=== PATIENT | female | born 1990 | race Caucasian/White ===

== ENCOUNTER 2021-09-29 09:11 | Outpatient (REF) | payer OTHER, SELFPAY ==
[2021-09-29 10:46] LABS: Hematocrit 44.3 % (37.0-47.0); Hemoglobin 14.9 g/dl (12.0-16.0); Mean Corpuscular HGB Conc 33.6 g/dl (31.0-35.0); Mean Corpuscular Hemoglobin 29.3 pg (27.0-33.0); Mean Corpuscular Volume 87.2 fL (80.0-98.0); Mean Platelet Volume 9.4 fL (9.4-12.3); Platelet Count 243 X10*3/uL (160-400); Red Blood Count 5.08 X10*6/uL (4.20-5.50); Red Cell Distribution Width 12.8 % (11.0-16.0); White Blood Count 5.5 X10*3/uL (4.8-10.8)
[2021-09-29 11:00] LABS: Alanine Aminotransferase 19 U/L (0-31); Albumin Level 4.1 g/dL (3.5-5.0); Alkaline Phosphatase 87 U/L (39-117); Anion Gap 11 (12-20); Aspartate Amino Transferase 17 U/L (5-31); Bilirubin Total 0.5 mg/dL (0.0-1.0); Blood Urea Nitrogen 7 mg/dL (9-16); Calcium 9.3 mg/dL (8.4-10.2); Carbon Dioxide 21 mmol/L (22-29); Chloride 110 mmol/L (96-108); Cholesterol 213 mg/dL; Estimated Glomerular Filt Rate > 60; Glucose Fasting 99 mg/dL (60-99); HDL Cholesterol 29 mg/dL; LDL Cholesterol Calculated 145 mg/dl; Potassium 3.9 mmol/L (3.3-5.1); Sodium 138 mmol/L (135-145); Total Protein 7.2 g/dL (6.5-8.0); Triglycerides 195 mg/dL
[2021-09-29 11:25] LABS: TSH reflex Free T4 1.27 uIU/mL (0.32-4.0)
== END 2021-09-29 09:12 | disposition home or self-care (01) ==
LOC: HO.WFDLDS 09:11
PROVIDERS: Visit Provider Hospitalist
DX: Z00.00 Encounter for general adult medical examination without abnormal findings (principal)
CPT/HCPCS: 36415; 80053; 80061; 84443; 85027

== ENCOUNTER 2022-01-15 11:13 | Outpatient (REF) | payer OTHER, SELFPAY | END 2022-01-15 11:14 | disposition home or self-care (01) | LOC: HO.LNP 11:13 | PROVIDERS: Visit Provider Hospitalist | DX: N39.0 Urinary tract infection, site not specified (principal) | CPT/HCPCS: 87086; 87147 ==

== ENCOUNTER 2023-05-07 10:37 | Outpatient (AMB) | payer OTHER, SELFPAY ==
--- NOTE | 2023-05-07 10:38 | A.OFFPC_ITS ---
Vital Signs 05/07/23 10:41 05/07/23 11:25 Height 5 ft 4 in Weight 204 lb BMI 35.0 BP 104/58 L Blood Pressure Location Rt brachial Position Sitting Respiration 13 Pulse 121 H 116 H Pulse Source Pulse Oximeter Auscultation Pulse Oximetry (%) 98 Oxygen Delivery Method Room Air Intake Visit Reasons: pe Intake Note: Patient is here for a transfer of care from Laura Lamar DNP to Kellie Simms DNP. Patient's last physical was on 09/29/21 with SV. Patient reports she has a worsening stye on her right eye. Patient reports she had blood from her anus without a bowel movement. Patient reports she has an IUD and she has had it for 9 years. Patient would like to request a referral for OBGYN. Patient would like to request a referral to an station repairer. Head Shipper Required: No Accompanied by: Self / Same As Patient Allergies clonidine Allergy (Severe, Verified 05/07/23 11:06) drops to the floor citalopram [From CELEXA] Adverse Reaction (Mild, Verified 05/07/23 11:06) didn't work diphenhydramine [From Benadryl] Adverse Reaction (Unknown, Verified 05/07/23 11:06) anxious Medication List - Last Reconciled 05/07/23 by Kellie Simms CNP bupropion HCl 300 mg PO DAILY cholecalciferol (vitamin D3) 1,250 mcg PO QWEEK clonazepam 1 mg PO TID PRN cyclobenzaprine TAKE 1 TABLET BY MOUTH THREE TIMES DAILY dextroamphetamine-amphetamine 20 mg 1 tab PO BID gabapentin 800 mg PO TID hydroxyzine HCl 25 mg PO TID PRN loxapine succinate mg PO multivitamin with folic acid 400 mcg (Tab-A-Veronica) 1 tab PO DAILY topiramate 100 mg PO DAILY trazodone 100 mg PO BEDTIME Tobacco use date assessed: 05/07/23 Dental Screening Dental Screen Date: 05/07/23 Did you have a dental visit in the last 12 months?: Yes Did you have a dental problem in the last 6 months where you did not have access to dental care?: No Was dental information given to patient?: Yes HPI HPI Comments History of Present Illness Details 32-year-old female presents for transfer of care For PCP is SV is no longer with the practice. Her last office visit was in 01/15/2022. Her recent blood work was almost 19 months ago. She has past medical history significant anxiety, depression, ADHD, PTSD migraines, and morbid obesity She notes that she is followed by [facility] and sees a psychiatrist at least every 3 months and sooner as need and a therapist weekly She admits to taking her medications as prescribed. She reports controlled symptoms with psychotropic medications She reports a painless stye on her right lower eyelid for the past 4 months, significantly reduced with warm compresses. She reports occasional yellow discharge from the right eye. She denies pain or visual disturbances. She notes that she usually get annual eye exam but has not followed up in the past 2 years. She wears prescription glasses for astigmatism. She notes that she will follow up [facility] in [place]. She notes that she has had an IUD for the past 9 years. She states that had a menstrual period for 1 week 5 weeks ago and noticed spotting 3-4 weeks ago. She states that the last time she was evaluated by an ALCOHOL STILL OPERATOR was a year ago for a regular check up. She states that her last pap smear test was 2 years ago: normal. She requests a referral to wage analyst. She notes that she has been exercising by walking for 10-20 minutes daily. She offers no other complaints and denies acute symptoms. [facility] Surgical History History of wisdom tooth extraction Family History Father Cerebral hemorrhage Mother Hypothyroidism Maternal Grandmother No problems noted. Maternal Grandfather Prostate cancer Maternal Grandfather No problems noted. Maternal Aunt Breast cancer Maternal Uncle Skin cancer Family/Other FH: mental illness Son In good health Sister In good health Social History Household Members: None Household Members Other:: Cat Housing: Apartment Alcohol intake: never Patient Tobacco Use Status: Current everyday Tobacco user Tobacco use type: Cigarette Cigarette Packs Per Day: 0.50 Cigarettes Per Day: 10 Years Smoked: 20 e-Cigarette/Vaping Use: Currently Using Second Hand Smoke Exposure: No Substance Use Type: Marijuana service: No Current occupational status: unemployed Current occupational exposures/hazards: No Sexual orientation: Unable to collect Gender identity: Unable to collect Cognitive needs: No Hearing needs: No Vision needs: Yes Questionnaire PHQ-9 Over the last 2 weeks, how often have you been bothered by any of the following problems? 1. Little interest or pleasure in doing things: nearly every day 2. Feeling down, depressed, or hopeless: more than half the days 3. Trouble falling or staying asleep, or sleeping too much: nearly every day 4. Feeling tired or having little energy: nearly every day 5. Poor appetite or overeating: not at all 6. Feeling bad about yourself - or that you are a failure or have let yourself or your family down: not at all 7. Trouble concentrating on things, such as reading the newspaper or watching television: several days 8. Moving or speaking so slowly that other people could have noticed. Or the opposite - being so fidgety or restless that you have been moving around a lot more than usual: not at all 9. Thoughts that you would be better off or of hurting yourself in some way: not at all Total score: 12 Depression Screening Interpretation: Positive Depression Screening Done: Yes 18147 - PHQ-9 Billing: Yes Source: Developed by Drs. Neal Hernández, Esperanza Saldana, Vance Saul and colleagues, with an educational kevan from [employer] Thrive Questionnaire Date Thrive assessed: 05/07/23 I am a: Patient What is your living situation today?: I have a steady place to live Within the past 12 months, did the food you bought not last and you didn't have the money to get more?: Never true Within the past 12 months, did you worry whether your food would run out before you got money to buy more?: Never true Do you have trouble paying for medicines?: No Do you have trouble getting transportation to medical appointments?: No Do you have trouble paying your heating and electricity bill?: No Do you have trouble taking care of your child, family member or friend?: No Do you have trouble with day-to-day activities such as bathing, preparing meals, shopping, managing finances, etc.?: No Are you currently unemployed and looking for a job?: No Are you interested in more education?: No Please select the resources that you would like help with: None Currently or been in a relationship where the following occur: no concerns reported AUDIT C Alcohol Use Questionnaire (AUDIT-C) 1. How often do you have a drink containing alcohol?: Never 3. How often do you have six or more drinks on one occasion?: Never Total Score: 0 COCO-7 AMB Questionnaire COCO-7 Date COCO - 7 assessed: 05/07/23 Feeling nervous, anxious, or on edge: 3 = Nearly every day Not being able to stop or control worryin = Nearly every day Worrying too much about different things: 3 = Nearly every day Trouble relaxin = Nearly every day Being so restless that it is hard to sit still: 2 = More than half the days Becoming easily annoyed or irritable: 1 = Several days Feeling afraid as if something awful might happen: 2 = More than half the days Total COCO-7 score (0-4 normal; 5-9 mild; 10-14 moderate; 15-21 severe): 17 Source: Developed by Drs. Neal Hernández, Esperanza Saldana, Vance Saul and colleagues, with an educational kevan from [employer] COCO-7 Assessment Billing COCO-7 Assessment Tool: COCO-7 Assessment 93652 Review of Systems Const Details: Const Denies chills, Denies fatigue, Denies fever(s), Denies headache(s) and Denies weakness ENT Reports as per HPI Card Denies chest pain, Denies lightheadedness, Denies dyspnea and Denies other (Palpitations) Resp Denies cough, Denies dyspnea, Denies wheezing and Denies other ( shortness of breath) GI Denies abdominal pain, Denies melena, Denies hematochezia, Denies change in bowel habits, Denies dyspepsia and Denies nausea Denies hematuria and Denies dysuria Musc Denies abnormal gait, Denies myalgias, Denies arthralgias, Denies numbness and Denies tingling Skin/Breast Reports as per HPI Neuro Denies abnormal gait, Denies dizziness, Denies headache(s), Denies memory loss, Denies numbness, Denies Sensory deficit (Neuro), Denies tingling and Denies weakness Psych Denies anxiety, Denies depression, Denies memory loss Endo Denies cold intolerance, Denies fatigue, Denies heat intolerance, Denies polydipsia and Denies polyuria Aller/Immun Denies wheezing Physical exam (Primary Care) Vital Signs: Last Vital Signs Pulse 121 H 05/07/23 10:41 Resp 13 05/07/23 10:41 BP 104/58 L 05/07/23 10:41 Pulse Ox 98 05/07/23 10:41 Oxygen Delivery Method Room Air 05/07/23 10:41 BMI result Body Mass Index 35.0 Tobacco/Smoking Status: Tobacco use Status Patient Tobacco Use Status Never used Tobacco 05/07/23 10:39 Depression Screening Interpretation: Positive Currently or been in a relationship where the following occur: no concerns reported Const Other: General: no acute distress and well developed Nutritional Appearance: well nourished Orientation/consciousness: patient oriented x3 HENMT Head: Yes normocephalic and Yes atraumatic Eyes General: appearance normal, both eyes and all related structures Pupils: Equal, round and reactive pupils present EOM: EOMs intact bilaterally Resp Effort & Inspection: normal respiratory effort Auscultation: clear to auscultation bilaterally Cardio Rate: regular rate Rhythm: regular rhythm Heart sounds: S1 normal heart sound present, S2 normal heart sound present, no gallops, no murmurs and no rubs GI Palpation (GI): No Abdominal aortic bruit present, Soft to palpation, nontender, No hepatosplenomegaly present and No Rebound tenderness present Auscultation: normal bowel sounds General: Yes no CVA tenderness Back/Spine/Pelvis Back: no CVA tenderness Cervical Spine: cervical ROM normal and No Cervical spine tenderness Thoracic/Lumbar Spine: thoraco-lumbar ROM normal, No pain with thoraco-lumbar ROM, No thoracic spinal tenderness and No lumbar spinal tenderness Extrem General: Yes normal to inspection, No edema and No calf tenderness Skin General: warm and dry. Normal skin color. Normal skin turgor Lesions: Small, round, lump noted to the right lower eyelid, consistent with stye. No discharge or signs of infection Rashes: no rashes Trauma: no lacerations or abrasions Wounds: no wounds Nails: normal Neuro General: patient oriented x3, gait normal and no focal neuro deficit Cranial nerves: Yes Equal, round and reactive pupils present Cognition (Neuro): normal cognition Gait exam (Neuro): Normal gait present Sensory Exam: No Sensory deficit (Neuro) Psych Appearance: grossly normal Affect: normal affect Attitude: cooperative Thought process: Normal thought process present Assessment and Plan Assessment & Plan (1) Anxiety and depression: Code(s): F41.9 - Anxiety disorder, unspecified; F32.9 - Major depressive disorder, single episode, unspecified Plan: PHQ-9 and COCO-7 scores revealed moderate depression and severe anxiety respectively Heart rate is elevated, likely due to anxiety. Resting heart rate is 116 Continue with current treatment regimen Routine exercise encouraged Continue follow-up with therapist and psychiatrist as planned Return with worsening or new symptoms Verbalized understanding and agreed with treatment plan. (2) ADHD, adult residual type: Code(s): F90.8 - Attention-deficit hyperactivity disorder, other type Plan: As above (3) PTSD (post-traumatic stress disorder): Code(s): F43.10 - Post-traumatic stress disorder, unspecified Plan: As above (4) Hordeolum externum right lower eyelid: Code(s): H00.012 - Hordeolum externum right lower eyelid Plan: Reports a painless stye on her right lower eyelid for the past 4 months, significantly reduced with warm compresses. She reports occasional yellow discharge from the right eye. She denies pain or visual disturbances Small, round, lump noted to the right lower eyelid, consistent with stye. No discharge or signs of infection Continue with warm compresses Follow-up with Ophthalmology as planned Return with worsening or new signs and symptoms Verbalized understanding and agreed with treatment plan (5) IUD check up: Code(s): Z30.431 - Encounter for routine checking of intrauterine contraceptive device Plan: She notes that she has had an IUD for the past 9 years. She states that had a menstrual period for 1 week 5 weeks ago and noticed spotting 3-4 weeks ago. She states that the last time she was evaluated by an ALCOHOL STILL OPERATOR was a year ago for a regular check up. She states that her last pap smear test was 2 years ago; normal. She requests a referral to wage analyst. Referred to [facility] ALCOHOL STILL OPERATOR Return with symptoms or concerns Verbalized understanding and agreed with treatment plan. Orders: Orders Comprehensive [place]. Panel Fast Today Z00.00 - Encounter for general adult medical examination without abnormal findings Lipid Panel Today Z00.00 - Encounter for general adult medical examination wit hout abnormal findings TSH reflex Free T4 Today Z00.00 - Encounter for general adult medical examination without abnormal findings UA CC w/rflx Micro + Cult Today Z00.00 - Encounter for general adult medical examination without abnormal findings Complete Blood Count Auto Diff Today Z00.00 - Encounter for general adult medical examination without abnormal findings Referrals ALCOHOL STILL OPERATOR Referral Z30.431 - Encounter for routine checking of intrauterine contraceptive device Coding Level of Care Code Est Pt Level 4 (13148) Diagnoses Anxiety and depression F41.9; F32.9 ADHD, adult residual type F90.8 PTSD (post-traumatic stress disorder) F43.10 Hordeolum externum right lower eyelid H00.012 IUD check up Z30.431 Additional Codes COCO-7 Assessment Billing - COCO-7 Assessment Tool: COCO-7 Assessment [id number] ([id number])
[2023-05-07 10:41] VITALS: BP 104/58; PULSE 121; RESP 13; O2SAT 98; BMI 35.0
[2023-05-07 11:25] VITALS: PULSE 116
== END 2023-05-07 11:47 | disposition home or self-care (01) ==
PROVIDERS: PCP Hospitalist; Visit Provider Nurse Practitioner Family
DX: H00.012 Hordeolum externum right lower eyelid (principal); F41.9 Anxiety disorder, unspecified; E66.01 Morbid (severe) obesity due to excess calories; Z68.35 Body mass index [BMI] 35.0-35.9, adult; F32.9 Major depressive disorder, single episode, unspecified; F90.8 Attention-deficit hyperactivity disorder, other type; F43.10 Post-traumatic stress disorder, unspecified; Z30.431 Encounter for routine checking of intrauterine contraceptive device
CPT/HCPCS: 96127; 99214

== ENCOUNTER 2024-01-27 14:22 | Outpatient (REF) | payer OTHER, SELFPAY ==
[2024-02-01 04:09] LABS: CT PCR NOT DETECTED (Not Detect.); NG PCR NOT DETECTED (Not Detect.)
[2024-02-01 09:05] LABS: Bacterial Vaginosis PCR NEGATIVE (Negative); Candida Group PCR NOT DETECTED (Not Detect); Candida glab krusei PCR DETECTED (Not Detect); Trichomonas vaginalis PCR NOT DETECTED (Not Detect)
[2024-02-02 13:08] LABS: HPV mRNA E6/E7 Not Detected (Not Detected)
== END 2024-01-27 14:23 | disposition home or self-care (01) ==
LOC: HO.LAB 14:22
PROVIDERS: PCP Nurse Practitioner Family; Visit Provider Advanced Practice Midwife
DX: Z01.419 Encounter for gynecological examination (general) (routine) without abnormal findings (principal); N89.8 Other specified noninflammatory disorders of vagina; E66.9 Obesity, unspecified; F17.210 Nicotine dependence, cigarettes, uncomplicated; Z20.2 Contact with and (suspected) exposure to infections with a predominantly sexual mode of transmission
CPT/HCPCS: 0352U; 36415; 87491; 87591; 87624; 88175; 99385

== ENCOUNTER 2024-01-27 14:22 | Outpatient (AMB) | payer OTHER, SELFPAY ==
--- NOTE | 2024-01-27 14:37 | A.OFFVIS_ITS ---
Vital Signs 01/27/24 14:40 Height 5 ft 4 in Weight 204 lb BMI 35.0 BP 120/70 Intake Visit Reasons: annual Slip Cover Operator Required: No Information Interpreted: clinical only Squad Sergeant: Squad Sergeant Present Allergies clonidine Allergy (Severe, Verified 01/27/24 14:40) drops to the floor citalopram [From CELEXA] Adverse Reaction (Mild, Verified 01/27/24 14:40) didn't work diphenhydramine [From Benadryl] Adverse Reaction (Unknown, Verified 01/27/24 14:40) anxious Medication List - Last Reconciled 01/27/24 by Rajni Busch CNM bupropion HCl XL 300 mg PO DAILY cholecalciferol (vitamin D3) 1,250 mcg PO QWEEK clonazepam 1 mg PO TID PRN cyclobenzaprine TAKE 1 TABLET BY MOUTH THREE TIMES DAILY dextroamphetamine-amphetamine 20 mg 1 tab PO BID gabapentin 800 mg PO TID hydroxyzine HCl 25 mg PO TID PRN levonorgestrel (Mirena) intrauterine loxapine succinate mg PO multivitamin with folic acid 400 mcg (Tab-A-Veronica) 1 tab PO DAILY topiramate 100 mg PO DAILY trazodone 100 mg PO BEDTIME Is last menstrual period known: No (IUD) HPI HPI annual: Details: Patient is here for continuous improvement coordinator exam she was seen by this practice previous years and before that she used to go to [place] she delivered her son there. She had a Mirena place there some months after giving she said she bled a lot with it for the 1st few months and then her periods eventually went away. Her periods have started to return. She says they told her it could be used for 10 years. She just recently broke up with her boyfriend of a few years but she wanted a test just to be sure she has been getting light periods she says sometimes they are a little bit heavy but they are still not enough to wear pad but she can tell they are a period Because she gets PMS symptoms before. [facility] Medical History (Updated 01/27/24 @ 15:33 by Rajni Busch CNM) Vitamin A deficiency ADHD (attention deficit hyperactivity disorder) Anxiety Migraines Surgical History History of wisdom tooth extraction Family History Father Cerebral hemorrhage Mother Hypothyroidism Maternal Grandmother No problems noted. Maternal Grandfather Prostate cancer Maternal Grandfather No problems noted. Maternal Aunt Breast cancer Maternal Uncle Skin cancer Family/Other FH: mental illness Son In good health Sister In good health Social History Household Members: None Household Members Other:: Cat Housing: Apartment Alcohol intake: never Patient Tobacco Use Status: Current everyday Tobacco user Tobacco use type: Cigarette Cigarette Packs Per Day: 0.50 Cigarettes Per Day: 10 Years Smoked: 20 e-Cigarette/Vaping Use: Currently Using Second Hand Smoke Exposure: No Substance Use Type: Marijuana service: No Current occupational status: unemployed Current occupational exposures/hazards: No Sexual orientation: Unable to collect Gender identity: Unable to collect Cognitive needs: No Hearing needs: No Vision needs: Yes Female Reproductive History Menstrual Age of Menarche: 9 Duration of menses: 3-5 days control method: progestin IUCD Total pregnancies: 2 Full term: 1 History of abnormal pap smear: No (previous pap neg ,unsure date) Physical Exam Vital Signs: Last Vital Signs BP 120/70 01/27/24 14:40 BMI result Body Mass Index 35.0 Const General: healthy appearing, comfortable, no acute distress, well developed and alert Nutritional Appearance: average body habitus Orientation/consciousness: patient oriented x3 Limitations: no limitations HEENT Head: Yes normocephalic Neck Neck: Yes normal visual inspection Chest Chest palpation & inspection: normal inspection of the chest Breast/axilla inspection: normal inspection of the breasts and normal inspection of the axillae Breast/axilla palpation: normal palpation of the breasts and normal palpation of the axillae Resp Effort & Inspection: normal respiratory effort GI Inspection: Yes normal to inspection, No Abdominal wall edema and No distended Palpation (GI): Soft to palpation and nontender Other: External exam within normal limits patient is very fair complected vulva very pink no obvious signs of yeast however. Vagina pink and moist cervix multiparous pink moist with Mirena strings extending about 2-3 cm. Cervical mucus very clear and abundant consistent with ovulatory mucus uterus is small anteverted mobile nontender adnexa nontender fair tone with Kegel instructed on kegels. General: Yes bladder normal to palpation External Female Exam: normal external appearance and normal appearance of the urethra Speculum Exam - Vagina: normal appearance of the vagina, normal palpation and normal vaginal discharge Speculum Exam - Cervix: normal appearance of the cervix, normal palpation and nontender Bimanual exam- vagina & uterus: normal bimanual exam, normal palpation, uterine size normal, bladder normal to palpation, consistency normal, normal palpation, uterine mobility normal, uterine shape normal, No Cervical tenderness present, non-tender and no cervical motion tenderness Bimanual Exam- Adnexa, other: normal adnexae, no masses, normal and No adnexal tenderness Neuro General: patient oriented x3 Assessment & Plan Assessment & Plan (1) IUD check up: Code(s): Z30.431 - Encounter for routine checking of intrauterine contraceptive device Category: Medical (2) Smoker: Code(s): F17.200 - Nicotine dependence, unspecified, uncomplicated Category: Social Hx (3) Women's annual routine gynecological examination: Code(s): Z01.419 - Encounter for gynecological examination (general) (routine) without abnormal findings Category: Medical (4) Encounter for screening examination for sexually transmitted disease: Code(s): Z11.3 - Encounter for screening for infections with a predominantly sexual mode of transmission Category: Medical (5) Cervical cancer screening: Code(s): Z12.4 - Encounter for screening for malignant neoplasm of cervix Category: Medical (6) Obesity (BMI 35.0-39.9 without comorbidity): Code(s): E66.9 - Obesity, unspecified Category: Medical Plan -----Discussed in this visit the following: healthy balanced diet, regular and consistent exercise, getting recommended health screens, doing the best she can for her particular health concerns, kegel exercises, pap smear screening and followup recommendations, mammography screening and SBE, normal changes in cycles in her life stage--- . Reviewed self-care reviewed the Mirena and its side effects and length of time can be used and that it used to be used for 5 years and is now extended up 8 but at this point for sure it should be replaced. I recommend she has no unprotected intercourse until we can replace it. The best time to do it would be at the start of a period however light it is that she experiences them. She is currently not with anyone so this is good time if we can not get it in with the next menses we will aim for the 1 after that I recommend that she pay attention to when she is premenstrual and start being aware and the minute she gets what she would call Call for replacement. She is not interested in blood work for STIs. She needs a new primary care provider and she will ask at the medical front desk specialist. Orders: Orders CT NG by PCR Today Z20.2 - Contact with and (suspected) exposure to infections with a predominantly sexual mode of transmission Bacterial Vaginosis Panel Today N89.8 - Other specified noninflammatory disorders of vagina PAP + HPV E6/E7 rfx 18/45 Today Z01.419 - Encounter for gynecological examination (general) (routine) without abnormal findings Coding Level of Care Code New Pt Prev Care [id number]([id number] Diagnoses IUD check up Z30.431 Smoker F17.200 Women's annual routine gynecological examination Z01.419 Encounter for screening examination for sexually transmitted disease Z11.3 Cervical cancer screening Z12.4 Obesity (BMI 35.0-39.9 without comorbidity) E66.9
[2024-01-27 14:40] VITALS: BP 120/70; BMI 35.0
== END 2024-01-27 15:32 | disposition home or self-care (01) ==
LOC: HO.HWSM 14:22
PROVIDERS: PCP Nurse Practitioner Family; Visit Provider Advanced Practice Midwife
DX: Z01.419 Encounter for gynecological examination (general) (routine) without abnormal findings (principal); E66.9 Obesity, unspecified; Z68.35 Body mass index [BMI] 35.0-35.9, adult; F17.200 Nicotine dependence, unspecified, uncomplicated
CPT/HCPCS: 99385

== ENCOUNTER 2024-04-06 10:59 | Outpatient (AMB) | payer OTHER, SELFPAY ==
--- NOTE | 2024-04-06 11:01 | MHC.PC.OV ---
Vital Signs 04/06/24 11:13 Height 5 ft 4 in Weight 195 lb 8 oz BMI 33.6 BP 110/80 Blood Pressure Location Rt brachial Position Sitting Respiration 16 Pulse 94 Pulse Source Pulse Oximeter Temp 98.1 F Temp Source Oral Pulse Oximetry (%) 97 Oxygen Delivery Method Room Air Intake Visit Reasons: EstablishCareNP Intake Note: patient here for CPE [employer] Shift Lead Required: No Is last menstrual period known: No (IUD) Post menopausal: No Patient : No Allergies clonidine Allergy (Severe, Verified 04/06/24 11:16) drops to the floor citalopram [From CELEXA] Adverse Reaction (Mild, Verified 04/06/24 11:16) didn't work diphenhydramine [From Benadryl] Adverse Reaction (Unknown, Verified 04/06/24 11:16) anxious Medication List - Last Reviewed 04/06/24 by Gabby Krishnamurthy MA aripiprazole 5 mg PO DAILY bupropion HCl XL 300 mg PO DAILY cholecalciferol (vitamin D3) 1,250 mcg PO QWEEK clonazepam 1 mg PO TID PRN cyclobenzaprine TAKE 1 TABLET BY MOUTH THREE TIMES DAILY dextroamphetamine-amphetamine 20 mg 1 tab PO BID gabapentin 800 mg PO TID levonorgestrel (Mirena) intrauterine multivitamin with folic acid 400 mcg (Tab-A-Veronica) 1 tab PO DAILY topiramate 100 mg PO DAILY trazodone 100 mg PO BEDTIME Tobacco use date assessed: 04/06/24 Dental Screening Dental Screen Date: 04/06/24 Did you have a dental visit in the last 12 months?: Yes Did you have a dental problem in the last 6 months where you did not have access to dental care?: No Was dental information given to patient?: Patient has dentist HPI HPI Comments History of Present Illness Details 33-year-old female presents for an extended physical exam She has past medical history significant anxiety, depression, ADHD, PTSD migraines, and morbid obesity She notes that she is followed by [facility] and sees a psychiatrist at least every 2-3 months and sooner as need and a therapist biweekly She admits to taking her medications as prescribed. She reports controlled symptoms with psychotropic medication. She reports controlled anxiety and depressive symptoms He admits to making healthy lifestyle changes, including diet and exercise. She generally sleeps well She reports persistent cough with yellow-greenish mucus for the past 2 months. She notes associated difficulty with inhalation and soreness to her bilateral lower ribcage especially at night. Her symptoms intensify at night. She has been taking rpxk-krk-[id number] cough remedies with improvement. She notes history of cough during the cold months. She notes that her son had respiratory symptoms before onset of her symptoms. No constitution symptoms at this time Smokes 10 cigarettes daily and has been smoking for the past 20 years; she cut back from 1ppd to 0.5ppd. Vapes nicotine 1-2 times weekly. Does not drink alcohol. Smokes half a joint of cannabis nightly Last eye exam was in 08/03/2023 (unknown facility/provider). 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 Maternal Aunt Breast cancer Alcohol abuse Maternal Uncle Skin cancer Family/Other FH: mental illness Son In good health Sister In good health Alcohol abuse Substance abuse Social History Household Members: None Household Members Other:: Cat Housing: Apartment Alcohol intake: never Patient Tobacco Use Status: Current everyday Tobacco user Tobacco use type: Cigarette Cigarette Packs Per Day: 0.50 Cigarettes Per Day: 10 Years Smoked: 20 e-Cigarette/Vaping Use: Currently Using Second Hand Smoke Exposure: No Substance Use Type: Marijuana service: No Current occupational status: unemployed Current occupational exposures/hazards: No Sexual orientation: Unable to collect Gender identity: Unable to collect Cognitive needs: No Hearing needs: No Vision needs: Yes Female Reproductive History Menstrual Age of Menarche: 9 Questionnaire PHQ-9 Over the last 2 weeks, how often have you been bothered by any of the following problems? 1. Little interest or pleasure in doing things: several days 2. Feeling down, depressed, or hopeless: more than half the days 3. Trouble falling or staying asleep, or sleeping too much: several days 4. Feeling tired or having little energy: nearly every day 5. Poor appetite or overeating: not at all 6. Feeling bad about yourself - or that you are a failure or have let yourself or your family down: several days 7. Trouble concentrating on things, such as reading the newspaper or watching television: nearly every day 8. Moving or speaking so slowly that other people could have noticed. Or the opposite - being so fidgety or restless that you have been moving around a lot more than usual: not at all 9. Thoughts that you would be better off or of hurting yourself in some way: not at all Total score: 11 Depression Screening Interpretation: Positive Depression Screening Follow-up: Existing condition and In treatment Depression Screening Done: Yes 27522 - PHQ-9 Billing: Yes Source: Developed by Drs. Neal Hernández, Esperanza Saldana, Vance Saul and colleagues, with an educational kevan from [employer]. Thrive Questionnaire Date Thrive assessed: 04/06/24 I am a: Patient What is your living situation today?: I have a steady place to live Within the past 12 months, did the food you bought not last and you didn't have the money to get more?: Never true Within the past 12 months, did you worry whether your food would run out before you got money to buy more?: Never true Do you have trouble paying for medicines?: No Do you have trouble getting transportation to medical appointments?: No Do you have trouble paying your heating and electricity bill?: No Do you have trouble taking care of your child, family member or friend?: No Do you have trouble with day-to-day activities such as bathing, preparing meals, shopping, managing finances, etc.?: Yes Are you currently unemployed and looking for a job?: Yes Are you interested in more education?: Yes Please select the resources that you would like help with: Housing/Usp, Transportation, Daily support, Job search/training and Education Currently or been in a relationship where the following occur: No concerns reported THRIVE Score: 0 AUDIT C Alcohol Use Questionnaire (AUDIT-C) 1. How often do you have a drink containing alcohol?: Never Total Score: 0 Score Reviewed/Action Taken: Yes COCO-7 AMB Questionnaire COCO-7 Date COCO - 7 assessed: 04/06/24 Feeling nervous, anxious, or on edge: 3 = Nearly every day Not being able to stop or control worryin = More than half the days Worrying too much about different things: 3 = Nearly every day Trouble relaxin = Several days Being so restless that it is hard to sit still: 1 = Several days Becoming easily annoyed or irritable: 2 = More than half the days Feeling afraid as if something awful might happen: 1 = Several days Total COCO-7 score (0-4 normal; 5-9 mild; 10-14 moderate; 15-21 severe): 13 Source: Developed by Drs. Neal Hernández, Esperanza Saldana, Vance Saul and colleagues, with an educational kevan from [employer]. COCO-7 Assessment Billing COCO-7 Assessment Tool: COCO-7 Assessment 93751 Review of Systems Const Details: Denies chills, Denies fatigue, Denies fever(s), Denies headache(s) and Denies weakness HEENT Denies change in vision, Denies dizziness, Denies headache(s), Denies hearing loss, Denies nasal congestion, Denies sinus pain, Denies sinus pressure and Denies sore throat Card Denies chest pain, Denies lightheadedness, Denies dyspnea and Denies other (palpitations) Resp Reports cough, Denies dyspnea and Denies wheezing GI Denies abdominal pain, Denies melena, Denies hematochezia, Denies change in bowel habits, Denies dyspepsia and Denies nausea Denies hematuria and Denies dysuria Musc Denies abnormal gait, Denies myalgias, Denies arthralgias, Denies numbness and Denies tingling Skin/Breast Denies rash, Denies unusual bruising and Denies wounds Neuro Denies abnormal gait, Denies dizziness, Denies headache(s), Denies memory loss, Denies numbness, Denies Sensory deficit (Neuro), Denies tingling and Denies weakness Psych Denies anxiety, Denies depression and Denies memory loss Endo Denies cold intolerance, Denies fatigue, Denies heat intolerance, Denies polydipsia and Denies polyuria Venkatesh/Lymph Denies easy bleeding and Denies easy bruising Aller/Immun Denies wheezing Physical exam (Primary Care) Vital Signs: Last Vital Signs Temp 98.1 F 04/06/24 11:13 Pulse 94 04/06/24 11:13 Resp 16 04/06/24 11:13 BP 110/80 04/06/24 11:13 Pulse Ox 97 04/06/24 11:13 Oxygen Delivery Method Room Air 04/06/24 11:13 BMI result Body Mass Index 33.6 Tobacco/Smoking Status: Tobacco use Status Tobacco use date assessed 04/06/24 04/06/24 11:10 Patient Tobacco Use Status Current everyday Tobacco 04/06/24 11:02 Tobacco use type Cigarette 04/06/24 11:02 e-Cigarette/Vaping Use Currently Using 04/06/24 11:02 PHQ-9: PHQ-9 Score PHQ-9: Total score 11 04/06/24 11:18 Depression Screening Interpretation: Positive Depression Screening Follow-up: Existing condition and In treatment Thrive Assessment: Date of Thrive Assessment Date Thrive assessed 04/06/24 04/06/24 11:19 Currently or been in a relationship where the following occur: No concerns reported Const Other: General: no acute distress, well developed, alert and awake Nutritional Appearance: well nourished Orientation/consciousness: patient oriented x3 HENMT Head: Yes normocephalic and Yes atraumatic Ears: hearing grossly normal bilaterally and TM's normal bilaterally General nose exam: Normal external nose present and Normal nares present Mouth: Normal oral and palatal mucosa present and moist mucous membranes Teeth and gingiva: dentition normal Throat: Yes oropharynx normal Eyes Pupils: Equal, round and reactive pupils present and Pupil accommodation reflex normal EOM: EOMs intact bilaterally Neck Neck: Yes normal visual inspection, Yes no lymphadenopathy and Yes trachea midline Thyroid: Thyroid normal Carotids: no bruits Lymphatic: no lymphadenopathy noted Chest Chest palpation & inspection: normal inspection of the chest Resp Effort & Inspection: normal respiratory effort Auscultation: Diminished with rhonchi and scattered wheezing to auscultation bilaterally; worse to bilateral upper lobes Cardio Rate: regular rate Rhythm: regular rhythm Heart sounds: S1 normal heart sound present, S2 normal heart sound present, no gallops, no murmurs and no rubs Bruits: no abdominal aortic bruits and no carotid bruits GI Palpation (GI): No Abdominal aortic bruit present, Soft to palpation, nontender, No hepatosplenomegaly present and No Rebound tenderness present Auscultation: normal bowel sounds General: Yes no CVA tenderness Back/Spine/Pelvis Back: no CVA tenderness Cervical Spine: cervical ROM normal and No Cervical spine tenderness Thoracic/Lumbar Spine: thoraco-lumbar ROM normal, No pain with thoraco-lumbar ROM, No thoracic spinal tenderness and No lumbar spinal tenderness Skin General: warm and dry. Normal skin color. Normal skin turgor Lesions: no lesions Rashes: no rashes Trauma: no lacerations or abrasions Wounds: no wounds Nails: normal Neuro General: patient oriented x3, gait normal and CN's II-XI intact bilaterally Cranial nerves: Yes Equal, round and reactive pupils present Cognition (Neuro): normal cognition Gait exam (Neuro): Normal gait present Motor exam (neuro): 5/5 motor strength present throughout Sensory Exam: No Sensory deficit (Neuro) Deep tendon reflexes (DTR's): Right patellar reflex intensity grade: 2+ and Left patellar reflex intensity grade: 2+ Extrem General: Yes normal to inspection, No edema and No calf tenderness Psych Appearance: grossly normal Affect: normal affect Attitude: cooperative Thought process: Normal thought process present Coding Level of Care Code Est Pt Level 4 (16305) Est Pt Prev Care 18-39y(12910) Diagnoses Normal physical exam Z00.00 Viral upper respiratory illness J06.9 Chronic cough R05.3 Cough type: chronic Smoker F17.200 Flu vaccine need Z23 Anxiety and depression F41.9; F32.9 ADHD, adult residual type F90.8 PTSD (post-traumatic stress disorder) F43.10 Additional Codes COCO-7 Assessment Billing - COCO-7 Assessment Tool: COCO-7 Assessment 82731 ([id number]) Assessment & Plan Assessment & Plan (1) Normal physical exam: Code(s): Z00.00 - Encounter for general adult medical examination without abnormal findings Category: Medical Plan: No significant physical restrictions or limitations noted Continue current treatment regimen Healthy diet and routine exercise encouraged Encouraged to limit or avoid smoking cannabis which may have adverse interaction with her psychotropic medications Advised to get lab work done and follow-up for telehealth visit in 2-3 weeks for labs review Return sooner with symptoms or concerns Verbalized understanding and agreed with the treatment plan (2) Viral upper respiratory illness: Code(s): J06.9 - Acute upper respiratory infection, unspecified Category: Medical Plan: Likely viral illness though possibly allergies. No exam evidence of bacterial infection Viral illness There is no antibiotic medication for viruses.? They must run their course.? Most average 5-7 days but 7-10 days is not uncommon and up to 14 days is still possible.? A cough is often the last symptom to resolve and this can last for weeks in some cases. Rest Hydrate well -? Drink plenty of fluids.? Especially water. Tylenol or ibuprofen for muscle aches, headache, fever/discomfort Cannot rule out COVID-19/RSV/Flu infection Nasal swab acquired and will be sent to the lab Return for new or worsening symptoms Verbalized understanding and agreed with treatment plan (3) Cough: Code(s): R05.9 - Cough, unspecified Category: Medical Qualifiers: Cough type: chronic Qualified Code(s): R05.3 - Chronic cough Plan: Reports persistent cough with yellow-greenish mucus x 2 months. She notes associated difficulty with inhalation and soreness to her bilateral lower ribcage especially at night. Her symptoms intensify at night. She has been taking [id number]-[id number] cough remedies with improvement. She notes history of cough during the cold months. She reports positive sick contact before the onset of her symptoms Intermittent cough noted during exam Diminished with rhonchi and scattered wheezing to auscultation bilaterally; worse to bilateral upper lobes Likely related to cigarette smoking or vaping. Bronchitis or pneumonia is possible Adequate hydration encouraged May take Tylenol ibuprofen for pain or discomfort Albuterol inhaler as prescribed Chest x-ray ordered Smoking and vaping cessation encouraged Follow-up with worsening or new symptoms Verbalized understanding and agreed with the plan (4) Smoker: Code(s): F17.200 - Nicotine dependence, unspecified, uncomplicated Category: Social Hx Plan: She smokes 10 cigarettes daily and has been smoking for the past 20 years; she cut back from 1ppd to 0.5ppd. she vapes nicotine 1-2 times weekly Instructed on the health risks and complications of cigarette smoking and vaping. Smoking and vaping cessation encouraged Declines medication treatment for smoking or nicotine use and notes that she will cut back on smoking and vaping She may inform her PCP as needed for treatment for smoking cessation and nicotine use Verbalized understanding and agreed with the plan (5) Flu vaccine need: Code(s): Z23 - Encounter for immunization Category: Medical Plan: She is not currently vaccinated for the flu but intends to do so Encouraged to get vaccinated after her respiratory symptoms improved/resolved. She may get the vaccine from her PCP office or the local pharmacy Verbalized understanding and agreed with the plan (6) Anxiety and depression: Code(s): F41.9 - Anxiety disorder, unspecified; F32.9 - Major depressive disorder, single episode, unspecified Category: Medical Plan: Reports controlled anxiety and depressive symptoms PHQ-9 and COCO-7 scores revealed moderate depression and anxiety respectively Continue current treatment regimen Routine exercise encouraged Follow-up with psychiatrist and therapist as planned Verbalized understanding and agreed with the plan (7) ADHD, adult residual type: Code(s): F90.8 - Attention-deficit hyperactivity disorder, other type Category: Medical Plan: Plan as above (8) PTSD (post-traumatic stress disorder): Code(s): F43.10 - Post-traumatic stress disorder, unspecified Category: Medical Plan: Plan as above Orders: Orders SARS-CoV2/FLU/RSV Today R09.89 - Other specified symptoms and signs involving the circulatory and respiratory systems XR chest 2V Today R05.9 - Cough, unspecified Medications: New albuterol sulfate 90 mcg/actuation 2 puffs inhalation Q4-6H PRN 8.5 grams 4RF shortness of breath or wheezing
[2024-04-06 11:13] VITALS: BP 110/80; PULSE 94; RESP 16; TEMP 36.7; O2SAT 97; BMI 33.6
== END 2024-04-06 11:54 | disposition home or self-care (01) ==
PROVIDERS: Visit Provider Nurse Practitioner Family
DX: Z00.00 Encounter for general adult medical examination without abnormal findings (principal); J06.9 Acute upper respiratory infection, unspecified; R05.3 Chronic cough; F17.210 Nicotine dependence, cigarettes, uncomplicated; F41.9 Anxiety disorder, unspecified; F32.9 Major depressive disorder, single episode, unspecified; F90.8 Attention-deficit hyperactivity disorder, other type; F43.10 Post-traumatic stress disorder, unspecified

== ENCOUNTER 2024-04-06 10:59 | Outpatient (REF) | payer OTHER, SELFPAY ==
[2024-04-06 14:42] LABS: Influenza A PCR NEGATIVE (Negative); Influenza B PCR NEGATIVE (Negative); Resp Syncy Virus RNA Qual PCR NEGATIVE (Negative); SARS COV2 PCR INHOUSE NEGATIVE (Negative)
== END 2024-04-06 11:00 | disposition home or self-care (01) ==
LOC: HO.LAB 10:59
PROVIDERS: Visit Provider Nurse Practitioner Family
DX: Z00.01 Encounter for general adult medical examination with abnormal findings (principal); J06.9 Acute upper respiratory infection, unspecified; R05.3 Chronic cough; F41.9 Anxiety disorder, unspecified; F32.9 Major depressive disorder, single episode, unspecified; F90.8 Attention-deficit hyperactivity disorder, other type; F43.10 Post-traumatic stress disorder, unspecified; F17.210 Nicotine dependence, cigarettes, uncomplicated; Z23 Encounter for immunization
CPT/HCPCS: 0241U; 96127; 99212; 99395

== ENCOUNTER 2024-04-15 07:46 | Outpatient (REF) | payer OTHER, SELFPAY ==
--- NOTE | ~2024-04-15 | XR_ITS ---
EXAMINATION: XR CHEST CLINICAL INFORMATION: Cough COMPARISON: Chest x-ray on 05/02/2019 TECHNIQUE: 2 views of the chest were obtained. FINDINGS: No significant abnormality is noted involving the heart, lungs, mediastinum, bony thorax or soft tissues. XR/XR chest 2V IMPRESSION: Unremarkable examination. Electronically signed by: Silke Earl MD 04/15/2024 01:25 PM EDT RP
[2024-04-15 08:16] LABS: MANUAL DIFF FLAG NO
[2024-04-15 08:50] LABS: Basophils Percent Auto 0.5 % (0-2); Eosinophils Percent Auto 0.2 % (0-4); Hematocrit 42.9 % (37.0-47.0); Hemoglobin 14.5 g/dl (12.0-16.0); Imm Gran Abs Auto 0.02 X10*3/uL (0.00-0.03); Imm Gran Pct Auto 0.3 % (0.0-0.4); Lymphocytes Absolute Auto 1.5 X10*3/uL (1.2-4.9); Lymphocytes Percent Auto 24.3 % (20-40); Mean Corpuscular HGB Conc 33.8 g/dl (31.0-35.0); Mean Corpuscular Hemoglobin 29.8 pg (27.0-33.0); Mean Corpuscular Volume 88.3 fL (80.0-98.0); Mean Platelet Volume 8.8 fL (9.4-12.3); Monocytes Absolute Auto 0.5 X10*3/uL (0.1-1.2); Monocytes Percent Auto 8.9 % (2-11); Neutrophils Absolute Auto 3.9 x10*3/uL (2.0-8.3); Neutrophils Percent Auto 65.8 % (45-73); Platelet Count 260 X10*3/uL (160-400); Red Blood Count 4.86 X10*6/uL (4.20-5.50); Red Cell Distribution Width 12.8 % (11.0-16.0)
[2024-04-15 09:05] LABS: Appearance Urine Cloudy; Color Urine Dark Yellow; Glucose Urine UA Negative (Negative); Leukocyte Esterase Urine Small (1+) (Negative); Nitrite Urine Positive (Negative); Specific Gravity - Urine 1.025 (1.005-1.025); UMIC TRIGGER UACC YES; Urine Blood Small (1+) (Negative); Urine Ketones Trace mg/dL (Negative); Urine Protein Trace mg/dL (Neg-Trace)
[2024-04-15 09:20] LABS: Alanine Aminotransferase 16 U/L (0-31); Alkaline Phosphatase 70 U/L (39-117); Anion Gap 12 (12-20); Aspartate Amino Transferase 17 U/L (5-31); Bilirubin Total 0.3 mg/dL (0.0-1.0); Blood Urea Nitrogen 8 mg/dL (9-16); Calcium 8.8 mg/dL (8.4-10.2); Carbon Dioxide 21 mmol/L (22-29); Chloride 112 mmol/L (96-108); Cholesterol 188 mg/dL (<200); Estimated Glomerular Filt Rate > 60; Glucose Fasting 98 mg/dL (60-99); HDL Cholesterol 29 mg/dL (>40); LDL Cholesterol Calculated 124 mg/dL (<100); Potassium 3.8 mmol/L (3.3-5.1); Sodium 141 mmol/L (135-145); Triglycerides 179 mg/dL (<150)
[2024-04-15 09:22] LABS: Bacteria Urine 4+ (None Seen); Hyaline Casts Urine 0-2 /LPF (0-2); RBC Urine 0-2 /HPF (0-2); UACC Culture Trigger YES; WBC Urine 21-50 /HPF (0-5)
[2024-04-15 09:39] LABS: TSH reflex Free T4 1.85 uIU/mL (0.32-4.0); Vitamin D 25-OH Total 131.5 ng/mL (>30)
== END 2024-04-15 07:47 | disposition home or self-care (01) ==
LOC: HO.XRAY 07:46
PROVIDERS: PCP Nurse Practitioner Family; Visit Provider Nurse Practitioner Family
DX: Z00.00 Encounter for general adult medical examination without abnormal findings (principal); E55.9 Vitamin D deficiency, unspecified; R05.9 Cough, unspecified
CPT/HCPCS: 36415; 71046; 80053; 80061; 81001; 81003; 82306; 84443; 85025; 87086; 87088; 87186

== ENCOUNTER 2024-04-25 10:25 | Outpatient (AMB) | payer OTHER, SELFPAY ==
--- NOTE | 2024-04-25 10:27 | MHC.OFFVIS ---
Vital Signs 04/25/24 10:28 Height 5 ft 4 in Weight 199 lb BMI 34.2 BP 110/72 Blood Pressure Location Rt brachial Position Sitting Pulse 94 Pulse Source Pulse Oximeter Pulse Oximetry (%) 98 Oxygen Delivery Method Room Air Intake Visit Reasons: Chronic cough Allergies clonidine Allergy (Severe, Verified 04/25/24 10:32) drops to the floor citalopram [From CELEXA] Adverse Reaction (Mild, Verified 04/25/24 10:32) didn't work diphenhydramine [From Benadryl] Adverse Reaction (Unknown, Verified 04/25/24 10:32) anxious HPI HPI Chronic cough: Details: Nivia is a pleasant 33 year old female, current 1/4 ppd smoker, with 20 pyh with underlying anxiety and PTSD. She was referred by PCP for pulmonary evaluation for chronic cough. She reports 2-3 month productive cough with greenish sputum with associated dyspnea and wheezing. She reports intermittent chills and felling feverish. She notes son was also sick and treated with prednisone. Recent CXR unremarkable. She was treated recently with Bactrim for UTI with improvements in cough however once discontinued productive cough returned. She denies prior h/o asthma. She was prescribed albuterol MDI which she has been using frequently with good effect. She reports seasonal allergies, with a cat at home. No recent allergy testing. She denies occupational exposures. [facility] Medical History (Updated 04/25/24 @ 16:07 by Liane Paz NP) Vitamin A deficiency ADHD (attention deficit hyperactivity disorder) Anxiety Migraines Surgical History History of wisdom tooth extraction Family History (Updated 04/06/24 @ 11:12 by Gabby Krishnamurthy MA) Father Cerebral hemorrhage Mother Hypothyroidism Maternal Grandmother Alcohol abuse Maternal Grandfather Prostate cancer Maternal Grandfather No problems noted. Maternal Aunt Breast cancer Alcohol abuse Maternal Uncle Skin cancer Family/Other FH: mental illness Son In good health Sister In good health Alcohol abuse Substance abuse Social History (Updated 04/25/24 @ 10:32 by Lory Merrill CMA) Household Members: None Household Members Other:: Cat Housing: Apartment Alcohol intake: never Patient Tobacco Use Status: Current everyday Tobacco user Tobacco use type: Cigarette Cigarette Packs Per Day: 0.25 Cigarettes Per Day: 5 Years Smoked: 20 e-Cigarette/Vaping Use: Currently Using Second Hand Smoke Exposure: No Substance Use Type: Marijuana service: No Current occupational status: unemployed Current occupational exposures/hazards: No Sexual orientation: Unable to collect Gender identity: Unable to collect Cognitive needs: No Hearing needs: No Vision needs: Yes Female Reproductive History Menstrual Age of Menarche: 9 Review of Systems Const Denies chills, Denies excessive sweating, Denies fever(s), Denies headache(s) and Denies night sweats Eyes Denies dry eyes, Denies irritation and Denies itchy eyes ENT Reports Normal hearing present, Denies headache(s), Denies nasal congestion, Denies nasal discharge, Denies post nasal drip and Denies sore throat Card Denies chest pain, Denies chest pain at rest, Denies chest pain with activity, Denies claudication, Denies leg edema and Denies paroxysmal nocturnal dyspnea Resp Denies excessive phlegm production, Denies pain on inspiration, Denies pain with cough and Denies stridor Musc Denies myalgias Neuro Reports Normal hearing present and Denies headache(s) Endo Denies excessive sweating Venkatesh/Lymph Denies lymphadenopathy Aller/Immun Denies itchy eyes and Denies seasonal rhinorrhea Physical Exam Vital Signs: Last Vital Signs Pulse 94 04/25/24 10:28 BP 110/72 04/25/24 10:28 Pulse Ox 98 04/25/24 10:28 Oxygen Delivery Method Room Air 04/25/24 10:28 BMI result Body Mass Index 34.2 Const General: cooperative, healthy appearing, comfortable, no acute distress, well developed and alert Orientation/consciousness: patient oriented x3 Limitations: no limitations HEENT Head: Yes normal to inspection, Yes normocephalic and Yes atraumatic Ears: hearing grossly normal bilaterally and external ears normal Eyes General: appearance normal, both eyes and all related structures Eyelids: Yes eyelids normal Sclerae: sclerae normal EOM: EOMs intact bilaterally Neck Neck: Yes normal visual inspection and Yes no lymphadenopathy Lymphatic: no lymphadenopathy noted Chest Chest palpation & inspection: normal inspection of the chest Resp Other: expiratory wheezes throughout mildly improved with duoneb Effort & Inspection: normal respiratory effort, able to speak in complete sentences, no audible wheezes, no stridor, not tachypneic, no tripod positioning and no use of accessory muscles Auscultation: wheezes and diminished lung sounds Cardio Jugular venous distension: no JVD Rate: regular rate Rhythm: regular rhythm Skin Other: warm, dry General skin exam: no rashes or lesions noted Neuro General: patient oriented x3 Cranial nerves: Yes Normal hearing present Cognition (Neuro): normal cognition Gait exam (Neuro): Normal gait present Extrem General: Yes normal to inspection, Yes capillary refill normal, Yes no clubbing, cyanosis or edema and Yes no pedal edema Psych Appearance: grossly normal and well kempt Speech and movement: Normal speech and movement present and Clear speech present Affect: normal affect Attitude: cooperative Thought process: Normal thought process present Thought content: Normal thought content present Insight: Good insight present (Psych) Judgement: Good judgement present (Psych) Office Procedures Nebulizer Treatment Nebulizer Treatment [id number]/[id number] RX initial, or Nebulizer Subsequent Treatment Office Meds ipratropium 0.5 mg-albuterol 3 mg (2.5 mg base)/3 mL nebulization soln Performing Provider: Liane Paz NP Performing Location: [facility] Pulmonology Services-[facility] Administered by: Gretchen Holliday LPN on 04/25/24 11:09 Dose Route Admin Location Dispensed Lot Number Expiration Date [facility] Manager Mechanical 3 mL inhalation 3 mL [id number] 09/25/25 52744-599-26 [employer] Assessment & Plan Assessment & Plan (1) Bronchitis: Code(s): J40 - Bronchitis, not specified as acute or chronic Category: Medical (2) Environmental allergies: Code(s): Z91.09 - Other allergy status, other than to drugs and biological substances Category: Medical (3) Cough: Code(s): R05.9 - Cough, unspecified Category: Medical Qualifiers: Cough type: chronic Qualified Code(s): R05.3 - Chronic cough Plan Nivia presents for pulmonary evaluation for chronic cough. Will treat bronchitic symptoms with a zpak and prednisone. Will only send 20 mg QD x 5 days, given risk of mood changes and has been stable on current regimen. She is aware if increased depression/anxiety to d/c medication. If persists will send for sputum and CXR. Likely has an obstructive component with an allergic ccontribution. Will send for PFT and empirically trial ICS. Discussed importance of good oral hygiene to prevent thrush. All questions were answered and patient is in agreement of plan. Will follow up to review results or sooner if needed. Orders: Orders AMB Nebulizer Treatment Today R05.3 - Chronic cough PFT pulmonary function test Today R05.3 - Chronic cough Resp Allergy Profile Region I Today Z91.09 - Other allergy status, other than to drugs and biological substances Immunoglobulin E Today Z91.09 - Other allergy status, other than to drugs and biological substances Medications: New prednisone 20 mg PO DAILY 5 tabs 0RF azithromycin For 250 mg dose pack: take 500 mg today (day 1), then 250 mg for 4 days (days 2-5) PO 6 tabs 0RF fluticasone furoate 100 mcg/actuation (Arnuity Ellipta) 1 inh inhalation DAILY 30 ea 6RF Refilled albuterol sulfate 90 mcg/actuation 2 puffs inhalation Q4-6H PRN 8.5 grams 4RF shortness of breath or wheezing Coding Level of Care Code New Pt Level 4 (80677) Diagnoses Bronchitis J40 Environmental allergies Z91.09 Chronic cough R05.3 Cough type: chronic CPT Codes Nebulizer Treatment - Nebulizer Treatment, initial or subsequent: [id number]/MDI RX initial, or Nebulizer Subsequent Treatment ([id number])
[2024-04-25 10:28] VITALS: BP 110/72; PULSE 94; O2SAT 98; BMI 34.2
== END 2024-04-25 11:22 | disposition home or self-care (01) ==
LOC: HO.HPSW 10:26
PROVIDERS: PCP Nurse Practitioner Family; Referring Provider Nurse Practitioner Family; Visit Provider Nurse Practitioner Family
DX: J40 Bronchitis, not specified as acute or chronic (principal); Z91.09 Other allergy status, other than to drugs and biological substances; R05.3 Chronic cough
CPT/HCPCS: 99204

== ENCOUNTER → 2024-04-25 10:25 | Outpatient (BNVA) | payer OTHER, SELFPAY | PROVIDERS: PCP Nurse Practitioner Family; Referring Provider Nurse Practitioner Family; Visit Provider Nurse Practitioner Family | DX: J40 Bronchitis, not specified as acute or chronic (principal); R05.3 Chronic cough; F17.210 Nicotine dependence, cigarettes, uncomplicated; Z91.09 Other allergy status, other than to drugs and biological substances | CPT/HCPCS: 94640; 99202 ==

== ENCOUNTER 2024-04-25 11:27 | Outpatient (REF) | payer OTHER, SELFPAY ==
[2024-05-01 15:34] LABS: Class Alternaria alternata 0; Class Aspergillus fumigatus 0; Class Bermuda Grass 0; Class Birch 0; Class Cat Dander 0; Class Cladosporium herbarum 0; Class Cockroach 0/1; Class Common Ragweed 0; Class Cottonwood 0; Class Derm. pterony 0/1; Class Dermatophagoides farinae 0; Class Dog Dander 0; Class Elm 0/1; Class Maple Box Elder 0; Class Mountain Cedar 0/1; Class Mouse Urine Protein 0; Class Mugwort 0; Class Oak 0; Class Penicillium crysogenum 0; Class Rough Pigweed 0; Class Sheep Sorrel 0/1; Class Sycamore 0; Class Timothy Grass 0; Class Walnut Tree 0/1; Class White Ash 0/1; Class White Mulberry 0; D001 IgE D pteronyssinus 0.16 kU/L; D002 - IgE D farinae <0.10 kU/L; E001 - IgE Cat Dander <0.10 kU/L; E005 - IgE Dog Dander <0.10 kU/L; E072-IgE Mouse Urine <0.10 kU/L; G002 IgE Bermuda Grass <0.10 kU/L; G006 - IgE Timothy Grass <0.10 kU/L; I006-IgE Cockroach, German 0.12 kU/L; Immunoglobulin E 163 kU/L (<OR=114); M001 IgE Penicillium chrysogen <0.10 kU/L; M002 - IgE Cladosporium herbar <0.10 kU/L; M003 - IgE Aspergillus fumigat <0.10 kU/L; M006 - IgE Alternaria alternat <0.10 kU/L; T001 IgE Maple/Box Elder <0.10 kU/L; T003 IgE Common Silver Birch <0.10 kU/L; T007 - IgE Oak, White <0.10 kU/L; T008 IgE Elm, American 0.11 kU/L; T010 - IgE Walnut 0.11 kU/L; T011 - IgE Maple Leaf Sycamore <0.10 kU/L; T014 - IgE Cottonwood <0.10 kU/L; T015 - IgE Ash, White 0.14 kU/L; T070 - IgE White Mulberry <0.10 kU/L; W001 - IgE Ragweed, Short <0.10 kU/L; W006 - IgE Mugwort <0.10 kU/L; W014 IgE Pigweed, Common <0.10 kU/L; W018 IgE Sheep Sorrel 0.15 kU/L
== END 2024-04-25 11:28 | disposition home or self-care (01) ==
LOC: HO.WFDLDS 11:27
PROVIDERS: Visit Provider Nurse Practitioner Family
DX: Z91.09 Other allergy status, other than to drugs and biological substances (principal)
CPT/HCPCS: 36415; 82785; 86003

== ENCOUNTER 2024-05-01 14:56 | Outpatient (AMB) | payer OTHER, SELFPAY ==
--- NOTE | 2024-05-01 09:52 | MHC.PC.OV ---
Intake Visit Reasons: Telehealth 2-3 wks labs Veterinary Anatomist Required: No Is last menstrual period known: No Post menopausal: No Patient : No Allergies clonidine Allergy (Severe, Verified 05/01/24 14:48) drops to the floor citalopram [From CELEXA] Adverse Reaction (Mild, Verified 05/01/24 14:48) didn't work diphenhydramine [From Benadryl] Adverse Reaction (Unknown, Verified 05/01/24 14:48) anxious Tobacco use date assessed: 04/06/24 Dental Screening Dental Screen Date: 04/06/24 HPI HPI Comments History of Present Illness Details 33-year-old female presents for a telehealth visit for review of recent lab results She admits to taking her medications as prescribed without adverse reactions She offers no complaints and denies acute symptoms at this time [facility] Medical History (Updated 05/01/24 @ 09:53 by Kellie Simms CNP) Vitamin A deficiency ADHD (attention deficit hyperactivity disorder) Anxiety Migraines Surgical History (Reviewed 01/27/24 @ 14:42 by Frederick Hairston [facility]) History of wisdom tooth extraction Family History (Updated 04/06/24 @ 11:12 by Gabby Krishnamurthy MA) Father Cerebral hemorrhage Mother Hypothyroidism Maternal Grandmother Alcohol abuse Maternal Grandfather Prostate cancer Maternal Grandfather No problems noted. Maternal Aunt Breast cancer Alcohol abuse Maternal Uncle Skin cancer Family/Other FH: mental illness Son In good health Sister In good health Alcohol abuse Substance abuse Social History (Updated 04/25/24 @ 10:32 by Lory Merrill [facility]) Household Members: None Household Members Other:: Cat Housing: Apartment Alcohol intake: never Patient Tobacco Use Status: Current everyday Tobacco user Tobacco use type: Cigarette Cigarette Packs Per Day: 0.25 Cigarettes Per Day: 5 Years Smoked: 20 e-Cigarette/Vaping Use: Currently Using Second Hand Smoke Exposure: No Substance Use Type: Marijuana service: No Current occupational status: unemployed Current occupational exposures/hazards: No Sexual orientation: Unable to collect Gender identity: Unable to collect Cognitive needs: No Hearing needs: No Vision needs: Yes Female Reproductive History Menstrual Age of Menarche: 9 Questionnaire Thrive Questionnaire Date Thrive assessed: 04/06/24 COCO-7 AMB Questionnaire COCO-7 Date COCO - 7 assessed: 10/10/24 Source: Developed by Drs. Neal Hernández, Esperanza Saldana, Vance Saul and colleagues, with an educational kevan from [employer]. Review of Systems Const Details: Const Denies chills, Denies fatigue, Denies fever(s), Denies headache(s) and Denies weakness ENT Denies dizziness and Denies headache(s) Card Denies chest pain, Denies lightheadedness, Denies dyspnea and Denies other (Palpitations) Resp Denies cough, Denies dyspnea, Denies wheezing and Denies other ( shortness of breath) GI Denies abdominal pain, Denies melena, Denies hematochezia, Denies change in bowel habits, Denies dyspepsia and Denies nausea Denies hematuria and Denies dysuria Musc Denies abnormal gait, Denies myalgias, Denies arthralgias, Denies numbness and Denies tingling Skin/Breast Denies rash, Denies unusual bruising and Denies wounds Neuro Denies abnormal gait, Denies dizziness, Denies headache(s), Denies memory loss, Denies numbness, Denies Sensory deficit (Neuro), Denies tingling and Denies weakness Psych Denies anxiety, Denies depression, Denies memory loss Endo Denies cold intolerance, Denies fatigue, Denies heat intolerance, Denies polydipsia and Denies polyuria Aller/Immun Denies wheezing Physical exam (Primary Care) Tobacco/Smoking Status: Tobacco use Status Tobacco use date assessed 04/06/24 05/01/24 09:54 Patient Tobacco Use Status Current everyday Tobacco 05/01/24 09:54 Tobacco use type Cigarette 05/01/24 09:54 e-Cigarette/Vaping Use Currently Using 05/01/24 09:54 Thrive Assessment: Date of Thrive Assessment Date Thrive assessed 04/06/24 05/01/24 09:54 Const Other: Telehealth visit. No physical exam Telehealth Telehealth Telehealth Platform: Telephone Location of provider rendering services: practice address Location of patient: address on file Patient Identification confirmed using: Name, : Yes Telehealth method: voice only Patient verbally consented to treatment: Yes Patient verbally consented to billing insurance company: Yes Patient informed of any privacy concerns related to visit: Yes Coding Level of Care Code Tele Est Pt Level 3 (48281) Diagnoses Dyslipidemia E78.5 UTI (urinary tract infection) N39.0 Vitamin D deficiency E55.9 Time Spent (min) 15 Assessment & Plan Assessment & Plan (1) Dyslipidemia: Code(s): E78.5 - Hyperlipidemia, unspecified Category: Medical Plan: Recent triglycerides level is elevated, 179, HDL level is low, 29 Advised to limit foods high in saturated fat and avoid foods high in trans fat Routine exercise encouraged Advised to fast for 10-12 hours, may drink water only, and get fasting lipid panel blood work done to 3 days before her next visit Follow-up for telehealth visit in 3 months or sooner with symptoms or concerns Verbalized understanding and agreed with the treatment plan. (2) UTI (urinary tract infection): Code(s): N39.0 - Urinary tract infection, site not specified Category: Medical Plan: Recent urinalysis and culture revealed UTI. She was treated with Bactrim DS. No acute symptoms at this time. (3) Vitamin D deficiency: Code(s): E55.9 - Vitamin D deficiency, unspecified Category: Medical Plan: Recent vitamin D level is 131 She has been on vitamin D3 95790 units weekly for a long time. Will discontinue vitamin D3 33523 units weekly at this time and start vitamin D3 2000 units daily. Advised to take as prescribed. Will recheck vitamin D level in 3 months. Verbalized understanding and agreed with the plan. Orders: Orders Vitamin D 25-OH Total 3 Months E55.9 - Vitamin D deficiency, unspecified Lipid Panel 3 Months E78.5 - Hyperlipidemia, unspecified Medications: New cholecalciferol (vitamin D3) 50 mcg PO DAILY 90 days 90 tabs 1RF Discontinued cholecalciferol (vitamin D3) Discontinued Reason: Doctor's Order 1,250 mcg PO QWEEK 4 caps 10RF
== END 2024-05-01 16:24 | disposition home or self-care (01) ==
LOC: HO.HMCFM 14:56
PROVIDERS: PCP Nurse Practitioner Family; Visit Provider Nurse Practitioner Family
DX: E78.5 Hyperlipidemia, unspecified (principal); N39.0 Urinary tract infection, site not specified; E55.9 Vitamin D deficiency, unspecified

== ENCOUNTER → 2024-05-01 14:56 | Outpatient (BNVA) | payer OTHER, SELFPAY | PROVIDERS: PCP Nurse Practitioner Family; Visit Provider Nurse Practitioner Family | DX: E78.5 Hyperlipidemia, unspecified (principal); E55.9 Vitamin D deficiency, unspecified ==

== ENCOUNTER 2024-07-31 11:58 | Emergency (ER) | payer OTHER, SELFPAY ==
--- NOTE | ~2024-07-31 | US_ITS ---
EXAMINATION: US PELVIS CLINICAL INFORMATION: Vaginal bleed. Low abdominal pain. Intrauterine contraceptive device. COMPARISON: September 25, 2015. TECHNIQUE: Ultrasound of the pelvis is performed using both transabdominal and transvaginal transducers along with Doppler. Transvaginal imaging is performed due to inadequate visualization transabdominally. FINDINGS: Uterus: The uterus is anteverted and measures 7 x 4 x 5 cm. There is an intrauterine contraceptive device in place. The endocervical canal is closed and normal. The double wall endometrial thickness is 3 mm. The uterus is smooth in contour and has normal myometrial echogenicity. No visible fibroid. Adnexa: Both ovaries are visualized. There is normal color flow to the adnexa. There is no ovarian torsion. There is no pelvic ascites or fluid collection. Right ovary measures 3 x 2 x 2 cm. Volume: 9 cc. There is a 2.1 cm hypoechoic lesion without flow on color Doppler interrogation. There is a 0.9 cm septated hypoechoic lesion without flow on color Doppler interrogation. Left ovary measures 3 x 2 x 2 cm. Volume: 7 cc. US/US pelvic and transvaginal IMPRESSION: Intrauterine contraceptive device in place. No ovarian torsion. Cystic lesions in the right adnexa. Consider IV contrast enhanced MRI pelvis for further imaging evaluation. Electronically signed by: Dev Spangler MD 07/31/2024 03:29 PM [facility]
[2024-07-31 12:51] VITALS: BP 129/69; PULSE 104; RESP 18; TEMP 35.7; O2SAT 96; BMI 27.5
--- NOTE | 2024-07-31 13:00 | ED_ITS ---
HPI - Abdominal Pain General Chief Complaint: Abdominal Pain Stated Complaint: Abd pain Time Seen by Provider: 07/31/24 19:59 Source: patient Mode of arrival: ambulatory Limitations: no limitations History of Present Illness ED Provider: inez sauceda NP HPI narrative: Patient is a 33-year-old female who presents emergency department for evaluation. She reports over the past 2 weeks she has been experiencing intermittent lower abdominal pain and nausea but no vomiting. She expresses concern that this may be secondary to her IUD; a Mirena that was placed more than 10 years ago. She states she is due to take it out but has been unable to schedule an appointment with her OBGYN office. She reports that about 1 week ago she had 2 days of vaginal spotting/bleeding which has since subsided. Pain is intermittent. She admits to a history of ovarian cysts. Denies fevers, chills, back pain, pelvic pain, abnormal vaginal discharge, pain with intercourse, concern for sexually transmitted infections. Denies dysuria, urinary frequency/urgency/hesitancy. Related Data Home Medications ?Medication ?Instructions ?Recorded ?Confirmed bupropion HCl 300 mg 24 hr tablet, 300 mg PO DAILY 05/07/23 04/06/24 extended release clonazepam 1 mg tablet 1 mg PO TID PRN 05/07/23 04/06/24 dextroamphetamine-amphetamine 20 1 tab PO BID 05/07/23 04/06/24 mg tablet gabapentin 800 mg tablet 800 mg PO TID 05/07/23 04/06/24 topiramate 100 mg tablet 100 mg PO DAILY 05/07/23 04/06/24 trazodone 100 mg tablet 100 mg PO BEDTIME 05/07/23 04/06/24 levonorgestrel 21 mcg/24 hr (up to intrauterine 01/27/24 04/06/24 8 years) 52 mg intrauterine device (Mirena) aripiprazole 5 mg tablet 5 mg PO DAILY 04/06/24 fluticasone furoate 200 1 inh inhalation DAILY 05/01/24 mcg/actuation blister powder for inhalation Previous Rx's ?Medication ?Instructions ?Recorded multivitamin with folic acid 400 1 tab PO DAILY #30 tabs 10/15/23 mcg tablet (Tab-A-Veronica) albuterol sulfate 90 mcg/actuation 2 puff inhalation Q4-6H PRN 04/25/24 aerosol inhaler shortness of breath or wheezing #8.5 grams cholecalciferol (vitamin D3) 50 50 mcg PO DAILY 90 days #90 tabs 05/01/24 mcg (2,000 unit) tablet cyclobenzaprine 10 mg tablet See Rx Instructions .Route 06/05/24 .COMPLEX #90 tabs Allergies Allergy/AdvReac Type Severity Reaction Status Date / Time clonidine Allergy Severe drops to Verified 07/31/24 12:54 the floor citalopram [From CELEXA] AdvReac Mild didn't work Verified 07/31/24 12:54 diphenhydramine AdvReac Unknown anxious Verified 07/31/24 12:54 [From Benadryl] Review of Systems Review of Systems Yes all other systems are reviewed and are negative [facility] Past Medical History Attestation statement: The following information was validated with the patient. Source: old records reviewed Medical History Vitamin A deficiency ADHD (attention deficit hyperactivity disorder) Anxiety Migraines Surgical History History of wisdom tooth extraction Family History Family History (Updated 04/06/24 @ 11:12 by Gabby Krishnamurthy MA) Father Cerebral hemorrhage Mother Hypothyroidism Maternal Grandmother Alcohol abuse Maternal Grandfather Prostate cancer Maternal Grandfather No problems noted. Maternal Aunt Breast cancer Alcohol abuse Maternal Uncle Skin cancer Family/Other FH: mental illness Son In good health Sister In good health Alcohol abuse Substance abuse Social History Social History (Updated 04/25/24 @ 10:32 by Lory Merrill CMA) Household Members: None Household Members Other:: Cat Housing: Apartment Alcohol intake: never Patient Tobacco Use Status: Current everyday Tobacco user Tobacco use type: Cigarette Cigarette Packs Per Day: 0.25 Cigarettes Per Day: 5 Years Smoked: 20 Smoked in Last 30 Days: Yes e-Cigarette/Vaping Use: Currently Using Second Hand Smoke Exposure: No Substance Use Type: Marijuana Advance Directives: No Advance Directives Information Provided: No Do you have a plan to hurt others: No Plan service: No Current occupational status: unemployed Current occupational exposures/hazards: No Sexual orientation: Unable to collect Gender identity: Unable to collect Cognitive needs: No Hearing needs: No Vision needs: Yes Physical Exam ED Vital Signs: Vital Signs - 24 hr 07/31/24 12:51 07/31/24 21:16 Temperature 96.2 F L 97.9 F Pulse Rate 104 H 86 Respiratory Rate 18 16 Blood Pressure 129/69 108/68 Pulse Oximetry 96 95 Oxygen Delivery Method Room Air Room Air BMI result Body Mass Index 27.5 Appearance: Alert.?Oriented to person, place and time. No acute distress.?Normal affect. CVS: Heart sounds normal. Normal heart rate and rhythm.? Pulses normal.?? Respiratory: No respiratory distress.? Lung sounds clear to auscultation bilaterally?? Abdomen: Soft and non-tender. Normoactive bowel sounds. No pulsatile mass.??No CVAT. Skin: Skin warm and dry.? Normal skin color.? Extremities: No lower extremity edema.? Neuro: Moves all extremities spontaneously. Sensation intact bilaterally. Ambulates with normal steady gait. Course Course Course Narrative: This is a Rapid Medical Exam performed in triage by Amber Bedolla PA-C. Full HPI, ROS and PE to be performed by primary ED provider. 33yo F with a past medical history HLD, asthma, presenting to the ED c/o lower abdominal pain, nausea, vaginal spotting, vaginal discharge x few weeks. Thinks she may be . Admits has an IUD and is worried about placement. PE: Abdomen is soft and nontender. Healing ecchymosis noted to face (states she fell on ice) Plan: Labs, UA, ultrasound Medical Decision Making Medical Decision Making MDM Narrative: Patient is a 33-year-old female presents emergency department for evaluation of intermittent abdominal pain with nausea no vomiting onset 2 weeks ago as per HPI. At the time my evaluation her abdominal examination is benign, no CVA tenderness. No active bleeding, no reported pelvic pain or abnormal vaginal discharge. She is amenable to performing self vaginal swabs for BV panel/E/CT/NG though she denied overt concern for sexually transmitted infection is not particularly having pelvic pain or discomfort. She would like the IUD removed in to discuss options for additional contraception, I did advise her that she needs to continue to call her straightening roll operator office to arrange for appropriate follow-up and removal. Ultrasound of the pelvis was obtained, revealing ovarian cyst which she has a known history of, IUD in appropriate placement. HCG is negative. Urinalysis with not compelling evidence of infection appears to have likely urogenital contamination and she is not having urinary symptoms. CBC is without leukocytosis anemia or thrombocytopenia. No significant electrolyte derangement. No MIKA. LFTs within normal range. Reviewed ultrasound obtained prior to my assumption of care; revealing IUD in place no evidence of torsion, cystic lesions in the right adnexa with radiologist recommendation for MRI of the pelvis with IV contrast for further evaluation, discussed with patient this may be performed on an outpatient basis with her straightening roll operator provider no indication for emergent MRI at this time. Urinalysis is not consistent with urinary tract infection, no microscopic hematuria. No CVAT to suggest renal colic secondary to calculi or pyelonephritis. HCG is negative, not consistent with ectopic . No unilateral abdominal pain or tenderness on examination, denies concern for sexually transmitted infection, denies history of ovarian cysts lower suspicion for tubo-ovarian abscess/ PID, ovarian torsion, ruptured ovarian cyst. Differential Diagnosis Differential Diagnoses: The differential diagnosis associated with the presentation includes (See narrative above) Admission/Observation Consideration of admission/observation: Escalation of care including admission/observation considered (See narrative above ) Lab Data MDM Lab Attestation statement: I reviewed the patient's lab results. 07/31/24 14:05 07/31/24 14:05 Labs: Lab Results 07/31/24 07/31/24 Range/Units 14:05 21:08 WBC 5.7 (4.8-10.8) X10*3/uL RBC 5.20 (4.20-5.50) X10*6/uL Hgb 15.4 (12.0-16.0) g/dl Hct 44.3 (37.0-47.0) % MCV 85.2 (80.0-98.0) fL MCH 29.6 (27.0-33.0) pg MCHC 34.8 (31.0-35.0) g/dl RDW 12.7 (11.0-16.0) % Plt Count 209 (160-400) X10*3/uL MPV 9.3 L (9.4-12.3) fL Immature Gran % (Auto) 0.2 (0.0-0.4) % Neut % (Auto) 51.8 (45-73) % Lymph % (Auto) 38.3 (20-40) % [place] % (Auto) 8.8 (2-11) % Eos % (Auto) 0.2 (0-4) % Baso % (Auto) 0.7 (0-2) % Lymph # (Auto) 2.2 (1.2-4.9) X10*3/uL [place] # (Auto) 0.5 (0.1-1.2) X10*3/uL Eos # (Auto) 0.0 (0.0-0.4) X10*3/uL Baso # (Auto) 0.0 (0.0-0.2) X10*3/uL Abs Immat Gran (auto) 0.01 (0.00-0.03) X10*3/uL Absolute Neuts (auto) 2.9 (2.0-8.3) x10*3/uL Absolute Nucleated RBC 0.000 (0.0-0.012) X10*3/uL Nucleated RBC % (auto) 0.0 (0.0-0.2) /100WBC Sodium 138 (135-145) mmol/L Potassium 3.5 (3.3-5.1) mmol/L Chloride 109 H (96-108) mmol/L Carbon Dioxide 20 L (22-29) mmol/L Anion Gap 13 (12-20) BUN 11 (9-16) mg/dL Creatinine 0.85 (0.5-1.4) mg/dL Estim Creat Clear Calc 91.9 Estimated GFR > 60 Random Glucose 83 (60-115) mg/dL Calcium 9.0 (8.4-10.2) mg/dL Magnesium 1.9 (1.6-2.6) mg/dL Total Bilirubin 0.5 (0.0-1.0) mg/dL Direct Bilirubin 0.2 (0.0-0.5) mg/dL AST 21 (5-31) U/L ALT 9 (0-31) U/L Alkaline Phosphatase 55 (39-117) U/L Total Protein 7.3 (6.5-8.0) g/dL Albumin 4.0 (3.5-5.0) g/dL Lipase 20 (8-78) U/L Urine Color Dark Yellow Urine Appearance Cloudy Urine pH 6.0 (5.0-9.0) Ur Specific [place] >= 1.030 H (1.005-1.025) Urine Protein Trace (Neg-Trace) mg/dL Urine Glucose (UA) Negative (Negative) mg/dL Urine Ketones 15 (Negative) mg/dL Urine Blood Negative (Negative) Urine Nitrite Negative (Negative) Ur Leukocyte Esterase Trace H (Negative) Urine RBC 0-2 (0-2) /HPF Urine WBC 0-5 (0-5) /HPF Ur Squamous Epith Cells 6-10 (0-2) /HPF Urine Bacteria 1+ (None Seen) Hyaline Casts 0-2 (0-2) /LPF Urine Test NEGATIVE (NEGATIVE) Radiology Impression Discussion of test interpretation with radiology: I have reviewed the radiologist's reading. Radiologist Impression: US/US pelvic and transvaginal IMPRESSION: Intrauterine contraceptive device in place. No ovarian torsion. Cystic lesions in the right adnexa. Consider IV contrast enhanced MRI pelvis for further imaging evaluation. Independent Historian Clinical information obtained from an independent historian. History obtained from or confirmed by: Spouse External Record Review External record reviewed: Outpatient record Discharge Plan Discharge Clinical Impression: Abdominal pain Patient Disposition: Home, Self-Care Instructions: Abdominal Pain (ED) Additional Instructions: As discussed additional test results that were sent today should be resulted in a few days you will receive a call from the hospitalist there is any positive testing. Urine does not show compelling evidence to suggest a urinary tract infection. Blood work is otherwise normal. Ultrasound does show the IUD is in appropriate placement, you do have ovarian cysts, is negative. Please contact your OBGYN provider to discuss further outpatient evaluation and treatment, in addition to your primary care provider for persistent abdominal pain. You may return to emergency department with any new or worsening symptoms or concerns. Prescriptions: No Action multivitamin with folic acid [Tab-A-Veronica] 400 mcg tablet 1 tab PO DAILY Qty: 30 3RF cyclobenzaprine 10 mg tablet See Rx Instructions .ROUTE .COMPLEX Qty: 90 0RF Dose Instruction: TAKE 1 TABLET BY MOUTH THREE TIMES DAILY Rx Instructions: TAKE 1 TABLET BY MOUTH THREE TIMES DAILY bupropion HCl 300 mg tablet extended release 24 hr 300 mg PO DAILY topiramate 100 mg tablet 100 mg PO DAILY dextroamphetamine-amphetamine 20 mg tablet 1 tab PO BID clonazepam 1 mg tablet 1 mg PO TID PRN trazodone 100 mg tablet 100 mg PO BEDTIME gabapentin 800 mg tablet 800 mg PO TID aripiprazole 5 mg tablet 5 mg PO DAILY Mirena 21 mcg/24 hr (8 yrs) 52 mg intrauterine device intrauterine fluticasone furoate 200 mcg/actuation blister with device 1 inh inhalation DAILY cholecalciferol (vitamin D3) 50 mcg (2,000 unit) tablet 50 mcg PO DAILY 90 Days Qty: 90 1RF albuterol sulfate 90 mcg/actuation HFA aerosol inhaler 2 puff inhalation Q4-6H PRN (Reason: shortness of breath or wheezing) Qty: 8.5 4RF Referrals: Kellie Simms CNP [Primary Care Provider] - Jarret Alejo MD [Physician] - Print Language: Somali
[2024-07-31 14:09] LABS: MANUAL DIFF FLAG NO
[2024-07-31 14:10] LABS: Basophils Percent Auto 0.7 % (0-2); Eosinophils Percent Auto 0.2 % (0-4); Hematocrit 44.3 % (37.0-47.0); Hemoglobin 15.4 g/dl (12.0-16.0); Imm Gran Abs Auto 0.01 X10*3/uL (0.00-0.03); Imm Gran Pct Auto 0.2 % (0.0-0.4); Lymphocytes Absolute Auto 2.2 X10*3/uL (1.2-4.9); Lymphocytes Percent Auto 38.3 % (20-40); Mean Corpuscular HGB Conc 34.8 g/dl (31.0-35.0); Mean Corpuscular Hemoglobin 29.6 pg (27.0-33.0); Mean Corpuscular Volume 85.2 fL (80.0-98.0); Mean Platelet Volume 9.3 fL (9.4-12.3); Monocytes Absolute Auto 0.5 X10*3/uL (0.1-1.2); Monocytes Percent Auto 8.8 % (2-11); Neutrophils Absolute Auto 2.9 x10*3/uL (2.0-8.3); Neutrophils Percent Auto 51.8 % (45-73); Platelet Count 209 X10*3/uL (160-400); Red Cell Distribution Width 12.7 % (11.0-16.0); White Blood Count 5.7 X10*3/uL (4.8-10.8)
[2024-07-31 14:30] LABS: Alanine Aminotransferase 9 U/L (0-31); Anion Gap 13 (12-20); Aspartate Amino Transferase 21 U/L (5-31); Bilirubin Direct 0.2 mg/dL (0.0-0.5); Bilirubin Total 0.5 mg/dL (0.0-1.0); Blood Urea Nitrogen 11 mg/dL (9-16); Carbon Dioxide 20 mmol/L (22-29); Chloride 109 mmol/L (96-108); Creatinine Clr Calc Pharmacy 91.9; Estimated Glomerular Filt Rate > 60; Glucose Random 83 mg/dL (60-115); Lipase 20 U/L (8-78); Magnesium 1.9 mg/dL (1.6-2.6); Potassium 3.5 mmol/L (3.3-5.1); Sodium 138 mmol/L (135-145); Total Protein 7.3 g/dL (6.5-8.0)
[2024-07-31 15:39] LABS: Alkaline Phosphatase 55 U/L (39-117)
--- NOTE | 2024-07-31 20:15 | PC.NURSE ---
Pt is a&ox4, no signs of distress Pt reports 7/10 abd pain Pts family at bedside being rude and aggressive when this RN asked pt for urine sample Plan of care ongoing.
[2024-07-31 21:16] VITALS: BP 108/68; PULSE 86; RESP 16; TEMP 36.6; O2SAT 95
[2024-07-31 21:20] LABS: Appearance Urine Cloudy; Color Urine Dark Yellow; Glucose Urine UA Negative (Negative); Leukocyte Esterase Urine Trace (Negative); Nitrite Urine Negative (Negative); Specific Gravity - Urine >= 1.030 (1.005-1.025); UMIC TRIGGER UACC YES; Urine Blood Negative (Negative); Urine Ketones 15 mg/dL (Negative); Urine Protein Trace mg/dL (Neg-Trace)
[2024-07-31 21:25] LABS: UPreg QC Valid YES; Urine Pregnancy NEGATIVE (NEGATIVE)
[2024-07-31 21:35] LABS: Bacteria Urine 1+ (None Seen); Hyaline Casts Urine 0-2 /LPF (0-2); RBC Urine 0-2 /HPF (0-2); WBC Urine 0-5 /HPF (0-5)
[2024-07-31 22:42] VITALS: BP 108/68; PULSE 86; RESP 16; TEMP 36.6; O2SAT 95
[2024-08-01 01:28] LABS: CT PCR NOT DETECTED (Not Detect.); NG PCR NOT DETECTED (Not Detect.)
[2024-08-01 09:37] LABS: Bacterial Vaginosis PCR POSITIVE (Negative); Candida Group PCR DETECTED (Not Detect); Candida glab krusei PCR NOT DETECTED (Not Detect); Trichomonas vaginalis PCR NOT DETECTED (Not Detect)
== END 2024-07-31 22:47 | disposition home or self-care (01) ==
PROVIDERS: Nurse Practitioner Family; Physician Assistant; Emergency Provider Emergency Medicine Emergency Medical Services; PCP Nurse Practitioner Family
DX: R10.2 Pelvic and perineal pain (principal); R11.2 Nausea with vomiting, unspecified; N93.9 Abnormal uterine and vaginal bleeding, unspecified; Z79.899 Other long term (current) drug therapy
CPT/HCPCS: 36415; 76830; 76856; 80048; 80076; 81001; 81025; 81515; 83690; 83735; 85025; 87491; 87591; 99284

== ENCOUNTER → 2024-07-31 13:00 | Outpatient (BNV) | payer OTHER, SELFPAY | PROVIDERS: PCP Nurse Practitioner Family; Visit Provider Radiology Diagnostic Radiology | DX: R19.09 Other intra-abdominal and pelvic swelling, mass and lump (principal) | CPT/HCPCS: 76830; 76856 ==

== ENCOUNTER 2024-09-19 14:51 | Outpatient (AMB) | payer OTHER, SELFPAY ==
[2024-09-19 15:06] VITALS: BP 118/78
--- NOTE | 2024-09-19 15:06 | MHC.OFFVIS ---
Vital Signs 09/19/24 15:06 Height 5 ft 4 in Weight 175 lb BMI 30.0 BP 118/78 Intake Visit Reasons: Er Follow Up Allergies clonidine Allergy (Severe, Verified 09/19/24 15:07) drops to the floor citalopram [From CELEXA] Adverse Reaction (Mild, Verified 09/19/24 15:07) didn't work diphenhydramine [From Benadryl] Adverse Reaction (Unknown, Verified 09/19/24 15:07) anxious Medication List - Last Reconciled 09/19/24 by Rajni Busch CNM albuterol sulfate 90 mcg/actuation 2 puffs inhalation Q4-6H PRN aripiprazole 5 mg PO DAILY bupropion HCl XL 300 mg PO DAILY cholecalciferol (vitamin D3) 50 mcg PO DAILY 90 days clonazepam 1 mg PO TID PRN cyclobenzaprine TAKE 1 TABLET BY MOUTH THREE TIMES DAILY dextroamphetamine-amphetamine 20 mg 1 tab PO BID fluticasone furoate 200 mcg/actuation 1 inh inhalation DAILY gabapentin 800 mg PO TID levonorgestrel (Mirena) intrauterine multivitamin with folic acid 400 mcg (Tab-A-Veronica) 1 tab PO DAILY topiramate 100 mg PO DAILY trazodone 100 mg PO BEDTIME Is last menstrual period known: No (IUD) HPI HPI Er Follow Up: Details: Patient is scheduled here as ER follow-up. She was in the emergency room on July 31 for abdominal pain test was negative she had an ultrasound that showed 2 small cysts in 1. She says she has a history of having these so she was not surprised in the pain is gone now I offered her an ultrasound following up on the cyst that she is not interested she has had them often for years feel pain is gone now then the cysts are probably gone now too. She is sexually active with her boyfriend they are more less being careful she would be okay if she got at this time though like to be a little bit more stable she has a choice to plan. She has had the Mirena for least 10 years and she would like it taken out her periods are very heavy and painful before she had it she delivered at [facility] she breastfed and after she was done then she was started on many of her mental health. By them she had the Mirena for control so her periods went away for several years she knows it has long ago she is experiencing monthly premenstrual symptoms as well as light cramping very light bleeding for which she does not need to wear a pad every month. She is on a variety of mental health she does know that she would probably go off of them what she did get . She is actually hoping the Mirena can be taken out and then what she wants to do is experience her body her menses again and then after a while she may put another on in but she does not want to do it at the same. This was discussed at the last visit when I saw her in 02/15/2024 and she said she forgot call to make the appointment. [facility] Medical History Vitamin A deficiency ADHD (attention deficit hyperactivity disorder) Anxiety Migraines Surgical History History of wisdom tooth extraction Family History Father Cerebral hemorrhage Mother Hypothyroidism Maternal Grandmother Alcohol abuse Maternal Grandfather Prostate cancer Maternal Grandfather No problems noted. Maternal Aunt Breast cancer Alcohol abuse Maternal Uncle Skin cancer Family/Other FH: mental illness Son In good health Sister In good health Alcohol abuse Substance abuse Social History Household Members: None Household Members Other:: Cat Housing: Apartment Alcohol intake: never Patient Tobacco Use Status: Current everyday Tobacco user Tobacco use type: Cigarette Cigarette Packs Per Day: 0.25 Cigarettes Per Day: 5 Years Smoked: 20 e-Cigarette/Vaping Use: Currently Using Second Hand Smoke Exposure: No Substance Use Type: Marijuana service: No Current occupational status: unemployed Current occupational exposures/hazards: No Sexual orientation: Unable to collect Gender identity: Unable to collect Cognitive needs: No Hearing needs: No Vision needs: Yes Female Reproductive History Menstrual Age of Menarche: 9 control method: progestin IUCD Total pregnancies: 1 Full term: 1 Date of last pap smear: 06/01/18 (negative) Physical Exam Vital Signs: Last Vital Signs BP 118/78 09/19/24 15:06 BMI result Body Mass Index 30.0 Results Reviewed Results Reviewed: [address] [address] Ultrasound Report Signed Patient: Nivia Swenson MR#: [id number] : 1990 Acct:[id number] Age/Sex: 33 / F ADM Date: 07/31/24 Loc: HO.ED Attending Dr: Ordering Physician: Amber Bedolla Date of Service: 07/31/24 Procedure(s): US pelvic and transvaginal Accession Number(s): [id number] cc: Amber Bedolla; Kellie Simms SUPERVISOR [employer]ING [employer]Y~ EXAMINATION: US PELVIS CLINICAL INFORMATION: Vaginal bleed. Low abdominal pain. Intrauterine contraceptive device. COMPARISON: September 25, 2015. TECHNIQUE: Ultrasound of the pelvis is performed using both transabdominal and transvaginal transducers along with Doppler. Transvaginal imaging is performed due to inadequate visualization transabdominally. FINDINGS: Uterus: The uterus is anteverted and measures 7 x 4 x 5 cm. There is an intrauterine contraceptive device in place. The endocervical canal is closed and normal. The double wall endometrial thickness is 3 mm. The uterus is smooth in contour and has normal myometrial echogenicity. No visible fibroid. Adnexa: Both ovaries are visualized. There is normal color flow to the adnexa. There is no ovarian torsion. There is no pelvic ascites or fluid collection. Right ovary measures 3 x 2 x 2 cm. Volume: 9 cc. There is a 2.1 cm hypoechoic lesion without flow on color Doppler interrogation. There is a 0.9 cm septated hypoechoic lesion without flow on color Doppler interrogation. Left ovary measures 3 x 2 x 2 cm. Volume: 7 cc. US/US pelvic and transvaginal IMPRESSION: Intrauterine contraceptive device in place. No ovarian torsion. Cystic lesions in the right adnexa. Consider IV contrast enhanced MRI pelvis for further imaging evaluation. Electronically signed by: Dev Spangler MD 07/31/2024 03:[address] [facility] Dictated By: Dev Haynes MD Signed By: <Electronically signed by Dev Krishnamurthy MD in OV> 07/31/24 1529 DD/ 1439 TD/TT: 07/31/24 1456 [place] Machine Feeder: Assessment & Plan Assessment & Plan (1) IUD (intrauterine device) in place: Code(s): Z97.5 - Presence of (intrauterine) contraceptive device Category: Medical (2) control counseling: Comment: See note. Code(s): Z30.09 - Encounter for other general counseling and advice on contraception Category: Medical Plan Patient is scheduled here as ER follow-up. She was in the emergency room on July 31 for abdominal pain test was negative she had an ultrasound that showed 2 small cysts in 1. She says she has a history of having these so she was not surprised in the pain is gone now I offered her an ultrasound following up on the cyst that she is not interested she has had them often for years feel pain is gone now then the cysts are probably gone now too. She is sexually active with her boyfriend they are more less being careful she would be okay if she got at this time though like to be a little bit more stable she has a choice to plan. She has had the Mirena for least 10 years and she would like it taken out her periods are very heavy and painful before she had it she delivered at [facility] she breastfed and after she was done then she was started on many of her mental health. By them she had the Mirena for control so her periods went away for several years she knows it has long ago she is experiencing monthly premenstrual symptoms as well as light cramping very light bleeding for which she does not need to wear a pad every month. She is on a variety of mental health she does know that she would probably go off of them what she did get . She is actually hoping the Mirena can be taken out and then what she wants to do is experience her body her menses again and then after a while she may put another on in but she does not want to do it at the same. Discussed her history. I do recommend that she have a conversation her mental health medication provider about whether not conception at all be advised on medications she is on and if not to be very very careful and use condoms carefully.. Discussed that it would be surprising to still have the Mirena having any effect 10 years out however it is certainly possible in the fact that her so much campus coordinator than previous signals that it maybe true, however I would not recommend depending on it for contraception. Patient had an exam last year Pap smear was done at that time. She can go ahead and schedule an exam and separate from that can have a visit to remove the Mirena IU S whenever it is. I did discuss that if she were to have another put in again future would definitely want to do that with her period. Safer sex urged. annual when due mirena removal wehn she wishes Coding Level of Care Code Est Pt Level 3 (94424) Diagnoses IUD (intrauterine device) in place Z97.5 control counseling Z30.09
--- OUTSIDE RECORDS SUMMARY | 2024-09-19 18:35 | XMS_ITS | Encounter Summary ---
Author Organization [facility] Address [address] [place] [address] Phone Care Team Providers Care Vehicle Painter Name Role Phone Unavailable Primary Care Provider Unavailabl e Encounter Details Date Type Department Care Team (Late st Contact Info) Description 02/11/2017 Conversion Encounter [facility] - [address] [address] Social History Tobacco Use Types Packs/Day Years Used Date Smoking Tobacco: Never Assessed Comments Unknown Sex and Gender Information Value Date Recorded Sex Assigned at Not on file Legal Sex Female 4:23 PM EDT Gender Identity Not on file Sexual Orientation Not on file documented as of this encounter Plan of Treatment Not on file documented as of this encounter Visit Diagnoses Not on filedocumented in this encounter
--- OUTSIDE RECORDS SUMMARY | 2024-09-19 18:35 | XMS_ITS | Clinical Summary ---
Author Organization [facility] Address [address] [place] [address] Phone Care Team Providers Care Speaker Wirer Name Role Phone Unavailable Primary Care Provider Unavailabl e Immunizations Immunization Administration Dates Next Due DTP 12/14/1995, 2,05/11/1991,1990,1990 Hep B, ped/adol 12/21/2002,07/10/2002 Hib (HbOC) 01/15/1992, 1,02/21/1991,1990 IPV 12/14/1995, 2,02/21/1991,1990 MMR 12/14/1995,01/15/1992 Td (adult) (MBL), 2 Lf tetan us toxoid, PF, adsorbed 07/10/2002 Family History Relation Name Status Comments Brother Alive Brother: Alive and well Father Alive Father: Alive a nd well Mother Alive Mother: Alive a nd well Other Family history of Asthma Sister Alive Sister: Alive a nd well Social History Tobacco Use Types Packs/Day Years Used Date Smoking Tobacco: Never Assessed Comments Unknown Sex and Gender Information Value Date Recorded Sex Assigned at Not on file Legal Sex Female 4:23 PM EDT Gender Identity Not on file Sexual Orientation Not on file Plan of Treatment Health Maintenance Due Date Last Done Comments DTaP,Tdap,and Td Vaccines (6 - Tdap) 07/11/2002 07/10/2002, 12/14/1995, 05/03/1992, Additional history exists Hepatitis B Vaccines (3 of 3 - 3-dose series) 02/15/2003 12/21/2002, 07/10/2002 Varicella Vaccines (1 of 2 - 13+ 2-dose series) 10/23/2003 Influenza Vaccines (#1) 2024 COVID-19 Vaccine ( - 2024-25 season) 2024 HIB Vaccines Completed 01/15/1992, 04/28, 02/21/1991, Additional history exists IPV Vaccines Completed 12/14/1995, 11/1991, 02/21/1991, Additional history exists MMR Vaccines Completed 12/14/1995, 01/15/1992 HPV Vaccines Aged Out No longer eligi ble based on patient's age to complete this topic Hepatitis A Vaccines Aged Out No long er eligible based on patient's age to complete this topic Men B Vaccine Aged Out No longer elig ible based on patient's age to complete this topic Meningococcal Vaccine Aged Out No rosario arthur eligible based on patient's age to complete this topic Pneumococcal Vaccine Aged Out No long er eligible based on patient's age to complete this topic
--- OUTSIDE RECORDS SUMMARY | 2024-09-19 18:35 | XMS_ITS | Clinical Summary ---
Author Organization [facility] ity Address [address] [place] [address] Care Team Providers Care Timber Deadener Name Role Phone Unavailable Primary Care Provider Unavailabl e Social History Tobacco Use Types Packs/Day Years Used Date Smoking Tobacco: Never Assessed Comments Unknown Sex and Gender Information Value Date Recorded Sex Assigned at Not on file Legal Sex Female 7:04 AM EST Gender Identity Not on file Sexual Orientation Not on file Plan of Treatment Health Maintenance Due Date Last Done Comments Hepatitis B Vaccines (1 of 3 - 19+ 3-dose series) 2009 Cervical Cancer Screening: P ap Smear 10/23/2011 DTaP,Tdap,and Td Vaccines (2 - Td or Tdap) 10/27/2023 10/26/2013 COVID-19 Vaccine ( - 2023-2 5 season) 2024 Influenza Vaccine (#1) 2024 3, 05/27/2012 HIB Vaccines Aged Out No longer eligi ble based on patient's age to complete this topic HPV Vaccines Aged Out No longer eligi ble based on patient's age to complete this topic Hepatitis A Vaccines Aged Out No long er eligible based on patient's age to complete this topic IPV Vaccines Aged Out No longer eligi ble based on patient's age to complete this topic MMR Vaccines Aged Out No longer eligi ble based on patient's age to complete this topic Meningococcal ACWY Vaccine Aged Out N o longer eligible based on patient's age to complete this topic Meningococcal B Vacine Aged Out No lo nger eligible based on patient's age to complete this topic Pneumococcal Vaccine: Pediatrics (0 to 5 Years) and At-Risk Patients (6 to 64 Years) Aged Out No longer eligible b ased on patient's age to complete this topic RSV Immunization Patients Under 20 months Aged Out No longer eligible b ased on patient's age to complete this topic Varicella Vaccines Aged Out No longer eligible based on patient's age to complete this topic
== END 2024-09-19 15:57 | disposition home or self-care (01) ==
LOC: HO.HWSM 14:51
PROVIDERS: PCP Nurse Practitioner Family; Visit Provider Advanced Practice Midwife
DX: Z97.5 Presence of (intrauterine) contraceptive device (principal); Z30.09 Encounter for other general counseling and advice on contraception
CPT/HCPCS: 99213

== ENCOUNTER → 2024-09-19 14:51 | Outpatient (BNVA) | payer OTHER, SELFPAY | PROVIDERS: PCP Nurse Practitioner Family; Visit Provider Advanced Practice Midwife | DX: Z30.09 Encounter for other general counseling and advice on contraception (principal); Z97.5 Presence of (intrauterine) contraceptive device | CPT/HCPCS: 99212 ==

== ENCOUNTER 2024-10-24 09:20 | Outpatient (REF) | payer OTHER, SELFPAY ==
--- OUTSIDE RECORDS SUMMARY | 2024-10-24 15:56 | XMS_ITS | Clinical Summary ---
Author Organization [facility] ity Address [address] [place] [address] Care Team Providers Care Migratory Worker Name Role Phone Unavailable Primary Care Provider [...]
--- OUTSIDE RECORDS SUMMARY | 2024-10-24 15:56 | XMS_ITS | Clinical Summary ---
Author Organization [facility] Address [address] [place] [address] Phone Care Team Providers Care Vp Rheumatology Name Role Phone Unavailable Primary Care Provider [...]
--- OUTSIDE RECORDS SUMMARY | 2024-10-24 15:56 | XMS_ITS | Encounter Summary ---
Author Organization [facility] Address [address] [place] [address] Phone Care Team Providers Care Sustainable Landscape Architect Name Role Phone Unavailable Primary Care Provider Unavailabl e Encounter Details Date Type Department Care Team (Late st Contact Info) Description 02/11/2017 Conversion Encounter [facility] - [address] [address] Social History Tobacco Use Types Packs/Day Years [...]
[2024-10-24 21:20] LABS: Bacterial Vaginosis PCR NEGATIVE (Negative); Candida Group PCR NOT DETECTED (Not Detect); Candida glab krusei PCR NOT DETECTED (Not Detect); Trichomonas vaginalis PCR NOT DETECTED (Not Detect)
[2024-10-24 22:00] LABS: CT PCR NOT DETECTED (Not Detect.); NG PCR NOT DETECTED (Not Detect.)
== END 2024-10-24 09:21 | disposition home or self-care (01) ==
LOC: HO.LNP 09:20
PROVIDERS: PCP Nurse Practitioner Family; Visit Provider Advanced Practice Midwife
DX: Z30.432 Encounter for removal of intrauterine contraceptive device (principal)
CPT/HCPCS: 58301; 81515; 87491; 87591; 99212

== ENCOUNTER 2024-10-24 09:20 | Outpatient (AMB) | payer OTHER, SELFPAY ==
--- NOTE | 2024-10-24 09:09 | A.OFFVIS_ITS ---
Vital Signs 10/24/24 09:11 Height 5 ft 4 in Weight 175 lb BMI 30.0 BP 102/64 Blood Pressure Location Lt brachial Intake Visit Reasons: IUD Removal Allergies clonidine Allergy (Severe, Verified 09/19/24 15:07) drops to the floor citalopram [From CELEXA] Adverse Reaction (Mild, Verified 09/19/24 15:07) didn't work diphenhydramine [From Benadryl] Adverse Reaction (Unknown, Verified 09/19/24 15:07) anxious Medication List - Last Reconciled 10/24/24 by Rajni Busch CNM albuterol sulfate 90 mcg/actuation 2 puffs inhalation Q4-6H PRN aripiprazole 5 mg PO DAILY bupropion HCl XL 300 mg PO DAILY cholecalciferol (vitamin D3) 50 mcg PO DAILY 90 days clonazepam 1 mg PO TID PRN dextroamphetamine-amphetamine 20 mg 1 tab PO BID gabapentin 800 mg PO TID levonorgestrel (Mirena) intrauterine multivitamin with folic acid 400 mcg (Tab-A-Veronica) 1 tab PO DAILY topiramate 100 mg PO DAILY trazodone 100 mg PO BEDTIME HPI HPI IUD Removal: Details: Mirena IUD removal she was seen after an emergency room visit and expressed the desire to remove the IUD because she wanted to conceive. She said she was certain but she has changed her mind about that her boyfriend is in a program for recovery and mental health elsewhere and we will be away for 3 months. She says she will eventually want to replace the IUD she has decided this isn't a good time to conceive but she wants to be without the I had UD for a while but she is wondering about the side effects of removal which I did review with her which include gradual return to increased discharge various mood changes and returned to menses but it can be slow and gradual and maybe unpredictable. Nevertheless she wants the Mirena removed it has been in she said for not 10 years. I did recommend highly that she protect herself with condoms at the very least against an unintended if she does have sex and also to review with her primary care provider and whoever else drives her meds whether not there she would be some changes if she were considering getting and planning for them ahead of time. [facility] Medical History Vitamin A deficiency ADHD (attention deficit hyperactivity disorder) Anxiety Migraines Surgical History History of wisdom tooth extraction Family History Father Cerebral hemorrhage Mother Hypothyroidism Maternal Grandmother Alcohol abuse Maternal Grandfather Prostate cancer Maternal Grandfather No problems noted. Maternal Aunt Breast cancer Alcohol abuse Maternal Uncle Skin cancer Family/Other FH: mental illness Son In good health Sister In good health Alcohol abuse Substance abuse Social History Household Members: None Household Members Other:: Cat Housing: Apartment Alcohol intake: never Patient Tobacco Use Status: Current everyday Tobacco user Tobacco use type: Cigarette Cigarette Packs Per Day: 0.25 Cigarettes Per Day: 5 Years Smoked: 20 e-Cigarette/Vaping Use: Currently Using Second Hand Smoke Exposure: No Substance Use Type: Marijuana service: No Current occupational status: unemployed Current occupational exposures/hazards: No Sexual orientation: Unable to collect Gender identity: Unable to collect Cognitive needs: No Hearing needs: No Vision needs: Yes Female Reproductive History Menstrual Age of Menarche: 9 Total pregnancies: 1 Full term: 1 History of abnormal pap smear: No Physical Exam Vital Signs: Last Vital Signs BP 102/64 10/24/24 09:11 BMI result Body Mass Index 30.0 Office Procedures IUD Insert/Removal Details Details: Speculum was placed testing for STIs and other mehreen done secondary to discharge.. Patient was very certain she wanted it removed today see note.. Mirena strings were grasped with ring forceps and when patient gave 1 single cough Mirena was very easily with 1 tiny spot of blood patient experienced only mild cramping. Teaching done -see per note [id number] Removal Procedure code (CPT) selection complete Assessment & Plan Assessment & Plan (1) IUD (intrauterine device) in place: Code(s): Z97.5 - Presence of (intrauterine) contraceptive device Category: Medical (2) control counseling: Comment: See note. Code(s): Z30.09 - Encounter for other general counseling and advice on contraception Category: Medical (3) Encounter for IUD removal: Code(s): Z30.432 - Encounter for removal of intrauterine contraceptive device Category: Medical Plan Mirena IUD removal she was seen after an emergency room visit and expressed the desire to remove the IUD because she wanted to conceive. She said she was certain but she has changed her mind about that her boyfriend is in a program for recovery and mental health elsewhere and we will be away for 3 months. She says she will eventually want to replace the IUD she has decided this isn't a good time to conceive but she wants to be without the I had UD for a while but she is wondering about the side effects of removal which I did review with her which include gradual return to increased discharge various mood changes and returned to menses but it can be slow and gradual and maybe unpredictable. Nevertheless she wants the Mirena removed it has been in she said for not 10 years. I did recommend highly that she protect herself with condoms at the very least against an unintended if she does have sex and also to review with her primary care provider and whoever else drives her meds whether not there she would be some changes if she were considering getting and planning for them ahead of time. Patient denied any concern for STIs but her discharge was little bit that can whitish and yellowish so I did swabs for GC chlamydia gonorrhea as well as trich bacterial vaginosis and yeast will treat accordingly. Mirena strings were grasped with ring forceps and Mirena IUD was easily removed with patient giving 1 single cough tiny spot of blood noted. Again I reviewed what to expect she did have some mild cramping. She asked if she should by pads and I gave her a pad but recommend that she just plan for eventual return of me nses. She mentioned that the Mirena IUD gave her cysts and I did remind her the cysts can occur at any time. Orders: Orders AMB IUD Insertion/Removal - Patient Supply Today Z30.432 - Encounter for removal of intrauterine contraceptive device Medications: Discontinued cyclobenzaprine Discontinued Reason: Patient no longer taking TAKE 1 TABLET BY MOUTH THREE TIMES DAILY 90 tabs 0RF Coding Level of Care Code Est Pt Level 3 (82499) Diagnoses IUD (intrauterine device) in place Z97.5 control counseling Z30.09 Encounter for IUD removal Z30.432 CPT Codes Details - CPT: 04539-ODL Removal ([id number])
[2024-10-24 09:11] VITALS: BP 102/64
--- OUTSIDE RECORDS SUMMARY | 2024-10-24 10:11 | XMS_ITS | Encounter Summary ---
Author Organization [facility] Address [address] [place] [address] Phone Care Team Providers Care Microsoft Dynamics Ax Developer Name Role Phone Unavailable Primary Care Provider Unavailabl e Encounter Details Date Type Department Care Team (Late st Contact Info) Description 02/11/2017 Conversion Encounter [facility] - [address] [address] Social History Tobacco Use Types Packs/Day Years [...]
--- OUTSIDE RECORDS SUMMARY | 2024-10-24 10:11 | XMS_ITS | Clinical Summary ---
Author Organization [facility] ity Address [address] [place] [address] Care Team Providers Care Resource Management Specialist Name Role Phone Unavailable Primary Care Provider [...] Td or Tdap) 10/27/2023 10/26/2013 COVID-19 Vaccine (2023-2 5 season) 2024 Influenza Vaccine (Season Ended) 2025 06/05/2013, 05/27/2012 HIB Vaccines Aged Out No longer [...] age to complete this topic Meningococcal B Vaccine Aged Out No l onger eligible based on patient's age to complete [...]
--- OUTSIDE RECORDS SUMMARY | 2024-10-24 10:11 | XMS_ITS | Clinical Summary ---
Author Organization [facility] Address [address] [place] [address] Phone Care Team Providers Care Leasing Agent Name Role Phone Unavailable Primary Care Provider [...]
== END 2024-10-24 10:18 | disposition home or self-care (01) ==
LOC: HO.HWSM 09:20
PROVIDERS: PCP Nurse Practitioner Family; Visit Provider Advanced Practice Midwife
DX: Z30.09 Encounter for other general counseling and advice on contraception (principal); Z30.432 Encounter for removal of intrauterine contraceptive device
CPT/HCPCS: 58301; 99213